=== PATIENT | female | born 1950 | race Caucasian/White ===

== ENCOUNTER 2018-11-24 14:02 | Inpatient (IN) ==
--- NOTE | 2018-11-24 14:26 | Diag Imaging Result Doc PS360 ---
EXAM: CT HEAD W/O CONTRAST HISTORY: fall head injury TECHNIQUE: CT head without contrast COMPARISON: None. FINDINGS: No parenchymal hemorrhage. No epidural or subdural hematoma. No subarachnoid hemorrhage. There are mild microvascular ischemic changes. No mass identified on this noncontrasted exam. No hydrocephalus. No skull fracture. IMPRESSION: No hemorrhage. No injury. This exam was performed using automated exposure control, adjustment of mA or kV according to patient size, and/or use of iterative reconstruction technique. Electronically signed by Tavares Mena 11/24/2018 2:24 PM
--- NOTE | 2018-11-24 15:22 | Diag Imaging Result Doc PS360 ---
EXAM: WRIST COMPLETE LEFT HISTORY: trauma TECHNIQUE: Left wrist, three views COMPARISON: None. FINDINGS: There is a fracture to the distal radius with compaction and dorsal angulation. The bones are osteopenic. IMPRESSION: Fracture to the distal radius. Electronically signed by Tavares Mena 11/24/2018 3:20 PM
--- NOTE | 2018-11-24 15:24 | Diag Imaging Result Doc PS360 ---
EXAM: CHEST-PORTABLE HISTORY: unresponsive TECHNIQUE: Portable chest single view COMPARISON: 04/30/2016 FINDINGS: The lungs are well expanded. The heart is not enlarged. The vessels are not distended. There are no infiltrates. No effusion identified. IMPRESSION: Negative exam. Electronically signed by Tavares Mena 11/24/2018 3:22 PM
[2018-11-24 15:32] LABS: UR AMPHETAMINES QUAL NONE DETECTED (NONE DETECT); UR BARBITUATES QUAL NONE DETECTED (NONE DETECT); UR BENZODIAZEPIN QUAL NONE DETECTED (NONE DETECT); UR CANNABINOIDS QUAL NONE DETECTED (NONE DETECT); UR COCAINE QUAL NONE DETECTED (NONE DETECT); UR METHADONE QUAL NONE DETECTED (NONE DETECT); UR OPIATES QUAL PRESUMPTIVE POSITIVE (NONE DETECT); UR OXYCODONE QUAL NONE DETECTED (NONE DETECT); UR PCP QUAL NONE DETECTED (NONE DETECT)
[2018-11-24 15:43] LABS: BLOOD TYPE ARTERIAL; HCO3-(ACT) 21.6 mmoll (20.0-26.0); O2(CT) 20.1 mL/dL (15.0-23.0); O2HB 91.8 % (95.0-99.0); PCO2(98.6) 33 mmHg (35-45); PO2(98.6) 71 mmHg (60-100); SAMPLE BLOOD; THB 15.6 g/dL (11.5-17.4); pH(98.6) 7.39 (7.35-7.45)
[2018-11-24 15:44] LABS: BASO# 0.03 X1000 (0.0-0.2); BASO% 0.1 % (0.0-0.8); EOS% 0.4 % (0.0-10.0); HEMATOCRIT 44.7 % (37.0-47.0); HEMOGLOBIN 15.7 g/dL (12.0-16.0); IMM GRAN# 0.09 X1000 (0.0-0.04); IMM GRAN% 0.4 % (0.0-0.5); LYMPH% 7.2 % (20.5-51.1); MCH 32.7 PG (27-31); MCHC 35.1 g/dL (33-37); MCV 93.1 FL (81-99); MONO# 1.45 X1000 (0.11-0.59); MONO% 6.1 % (1.7-9.3); MPV 11.3 FL (7.4-10.4); NEUT# 20.29 X1000 (1.4-6.5); NEUT% 85.8 % (42.2-75.2); PLT 258 X1000 (130-400); RDW 12.4 % (11.5-14.5); WBC 23.66 X1000 (4.8-10.8)
[2018-11-24 15:45] LABS: ALLEN TEST YES; MODALITY ROOM AIR
[2018-11-24 15:51] LABS: INR 1.02; PROTIME 14.2 Seconds (11.0-16.0)
[2018-11-24 15:52] LABS: PTT 49.7 Seconds (22.3-41.8)
[2018-11-24 16:26] LABS: ALB/GLOB RATIO 1.5; ALBUMIN 4.6 g/dL (3.5-5.0); CALCIUM 9.6 mg/dL (8.8-10.2); CREATININE 2.8 mg/dL (0.5-0.9); TOTAL BILIRUBIN 0.81 mg/dL (0.20-1.00); TOTAL PROTEIN 7.6 g/dL (6.3-8.3)
[2018-11-24 16:44] LABS: CK INDEX 3.9 (0.0-2.5); CK-MB 13.69 ng/mL (0.0-5.0)
--- NOTE | 2018-11-24 16:50 | PROVIDER DOCUMENTATION ---
This chart was entered by Meena Robles Scribe, acting as scribe for Jarred Millard MD. HPI-Neurological Disorder - General Chief Complaint: Altered Mental Status Stated Complaint: AMS Time Seen by Provider: 11/24/18 14:36 Source: patient, family Allergies/Adverse Reactions: Patient Allergies Allergy/AdvReac Type Severity Reaction Status Date / Time Penicillins Allergy Unknown Verified 04/30/16 16:02 Sulfa (Sulfonamide Allergy Unknown Verified 04/30/16 16:02 Antibiotics) Home Medications: Home Medication List Medication Instructions Recorded Confirmed Last Taken Type Baclofen 10 mg PO BID 04/30/16 11/24/18 04/28/16 20:00 History 10 mg Hydrocodone/APAP 10 mg/325 mg 1 tab PO Q8H PRN 04/30/16 11/24/18 04/30/16 13:00 History [[place]-10] 1 tablet Omeprazole 40 mg PO DAILY 04/30/16 11/24/18 Unknown History Paroxetine HCl [Paxil] 20 mg PO DAILY 04/30/16 11/24/18 04/29/16 09:00 History 20 mg Simvastatin 40 mg PO DAILY 04/30/16 11/24/18 04/29/16 09:00 History 40 mg Ergocalciferol (Vitamin D2) 50,000 unit PO Q7D 11/24/18 11/24/18 Unknown History [Vitamin D] Iron Carbonyl/Vit C/Vit B12/FA 1 tab PO DAILY 11/24/18 11/24/18 Unknown History [Icar-C Plus] Lisinopril/Hydrochlorothiazide 1 each PO DAILY 11/24/18 11/24/18 Unknown History [Lisinopril-Hctz 20-25 mg Tab] Potassium Chloride [Klor-Con M20] 1 tab PO DAILY 11/24/18 11/24/18 Unknown History - History of Present Illness-Neuro Nature of Presenting Problem: 68yof presents via EMS with AMS for 3 days and has worsened this morning. The patient's sister acts as historian. She reports the patient fell this morning and has bruising to L cheek and L wrist. She reports the patient has had multiple falls recently. She reports the patient lives alone. She reports the patient takes [place] 10 from a pain clinic. She reports the patient has a hx of depression. The patient's sister is at bedside. Severity: reports: moderate Onset/Duration: reports: 3 days ago, this morning Timing: reports: still present, constant Context: reports: falling, other (AMS, pt is mostly nonverbal) Character of Altered Mental Status: reports: other (mostly nonverbal) Any recent trauma/injury?: reports: other (multiple falls recently) Character of Deficits: reports: falling Associated Symptoms: reports: other (multiple falls). denies: fever/chills Similar Symptoms Previously?: No Recently seen or treated by another doctor?: No Review of Systems - Adult - REVIEW OF SYSTEMS - ADULT ROS:: limited per condition (pt is awake, alert, but mostly verbally unresponsive) Constitutional: denies: chills, fever Eyes: reports: no symptoms reported Ears, Nose, Mouth & Throat: reports: no symptoms reported Cardiovascular: reports: no symptoms reported Respiratory: reports: no symptoms reported Gastrointestinal: reports: no symptoms reported Genitourinary: reports: no symptoms reported Musculoskeletal: reports: no symptoms reported Integumentary: reports: no symptoms reported Neurological: reports: no symptoms reported Psychiatric: reports: no symptoms reported Endocrine: reports: no symptoms reported Hematologic/Lymphatic: reports: no symptoms reported Allergic/Immunologic: reports: no symptoms reported All Other Systems: Reviewed and Negative Past History - Adult - PAST MEDICAL HISTORY-ADULT Review of Records: reports: Old Records Reviewed, Nursing Assessment Review, Medications Reviewed Major Childhood Illnesses: reports: denies history Cardiovascular: reports: HTN - PRIOR SURGERIES/PROCEDURES Surgical/Procedure History: reports: none - IMMUNIZATION STATUS Childhood Immunizations: See Nurse Assessment Flu Vaccine: See Nurse Assessment - FAMILY HISTORY Family History: reviewed, not pertinent - SOCIAL HISTORY Smoking: cigarettes, less than 1 pack/day Substance Use: denies Living Situation: alone Physical Exam- Neurological - Physical Exam-Neuro Initial Vital Signs Reviewed: Yes General Appearance: alert, no apparent distress, other (pt is awake, alert, but mostly verbally unresponsive. pt follows most commands.) Eye Exam: bilateral eye: normal inspection, PERRL, EOMI HENMT: other (mild swelling under L eye and L cheek) Head Injury: no evidence of injury. 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 pt follows most commands.) Integumentary: normal color, warm/dry, ecchymosis (mild L wirst) Psych/Mental Status: other (pt is awake, alert, but mostly verbally unresponsive. pt follows most commands. when asked where she is, pt reports "hospital," but is unable to determine which hospital. when asked where she lives she responds "[place].") - Glascow Coma Scale Best Eye Response: (4) open spontaneously Best Verbal Response: (3) inappropriate words Best Motor Response: (6) obeys commands Total Glascow Score: 13 Progress - PLAN OF CARE/RESULTS Progress/Plan/Lab Results: Vital Signs - 8 hr 11/24/18 14:08 11/24/18 14:25 11/24/18 14:27 Pulse Rate 90 100 H 89 Respiratory Rate 20 17 Blood Pressure 129/76 132/93 O2 Sat by Pulse Oximetry 96 11/24/18 14:31 11/24/18 14:40 11/24/18 14:50 Pulse Rate 88 103 H 110 H Respiratory Rate 14 22 28 H Blood Pressure 148/91 O2 Sat by Pulse Oximetry 94 L 11/24/18 15:00 11/24/18 15:02 11/24/18 15:10 Pulse Rate 102 H 108 H 92 H Respiratory Rate 19 17 17 Blood Pressure 137/92 O2 Sat by Pulse Oximetry 11/24/18 15:20 11/24/18 15:28 11/24/18 15:30 Pulse Rate 96 H 88 91 H Respiratory Rate 23 17 17 Blood Pressure 136/96 O2 Sat by Pulse Oximetry 11/24/18 15:31 11/24/18 15:40 11/24/18 15:50 Pulse Rate 106 H 89 95 H Respiratory Rate 15 19 17 Blood Pressure 149/86 O2 Sat by Pulse Oximetry 11/24/18 16:00 11/24/18 16:01 Pulse Rate 100 H 91 H Respiratory Rate 18 18 Blood Pressure 132/89 O2 Sat by Pulse Oximetry Laboratory Results - last 24 hr 11/24/18 11/24/18 11/24/18 14:55 15:25 15:25 WBC 23.66 H RBC 4.80 Hgb 15.7 Hct 44.7 MCV 93.1 MCH 32.7 H MCHC 35.1 RDW Std Deviation 12.4 Plt Count 258 MPV 11.3 H Immature Gran % (Auto) 0.4 Neut % (Auto) 85.8 H Lymph % (Auto) 7.2 L Vernon % (Auto) 6.1 Eos % (Auto) 0.4 Baso % (Auto) 0.1 Immature Gran # (Auto) 0.09 H Neut # (Auto) 20.29 H Lymph # (Auto) 1.70 Vernon # (Auto) 1.45 H Eos # (Auto) 0.10 Baso # (Auto) 0.03 PT INR PTT (Actin FS) Specimen Type Sample Site pH pCO2 pO2 HCO3 Base Excess Oxyhemoglobin ABG O2 Sat (Calculated) ABG O2 Saturation ABG Carboxyhemoglobin ABG Methemoglobin Caio Test A-a O2 Difference Total Hemoglobin Lactate Blood Gas Modality FiO2 % Sodium 137 Potassium 3.0 L Chloride 97 L Carbon Dioxide 20 L Anion Gap 20 BUN 58 H Creatinine 2.8 H Estimated GFR/1.73 m2 17 BUN/Creatinine Ratio 21 Glucose 107 H POC Glucose Calculated Osmolality 290 Calcium 9.6 Total Bilirubin 0.81 AST 32 H ALT 15 Alkaline Phosphatase 129 H Creatine Kinase 351 H Creatine Kinase Index 3.9 H CK-MB (CK-2) 13.69 H Troponin T Total Protein 7.6 Albumin 4.6 Globulin 3.0 Albumin/Globulin Ratio 1.5 Plasma Lactate Urine Opiates Screen PRESUMPTIVE POSITIVE A Ur Oxycodone Screen NONE DETECTED Ur Methadone, Qual NONE DETECTED Ur Barbiturates Screen NONE DETECTED Ur Phencyclidine Scrn NONE DETECTED Ur Amphetamines Screen NONE DETECTED U Benzodiazepines Scrn NONE DETECTED Urine Cocaine Screen NONE DETECTED U Cannabinoids Screen NONE DETECTED 11/24/18 11/24/18 11/24/18 15:25 15:25 15:25 WBC RBC Hgb Hct MCV MCH MCHC RDW Std Deviation Plt Count MPV Immature Gran % (Auto) Neut % (Auto) Lymph % (Auto) Vernon % (Auto) Eos % (Auto) Baso % (Auto) Immature Gran # (Auto) Neut # (Auto) Lymph # (Auto) Vernon # (Auto) Eos # (Auto) Baso # (Auto) PT 14.2 INR 1.02 PTT (Actin FS) 49.7 H Specimen Type Sample Site pH pCO2 pO2 HCO3 Base Excess Oxyhemoglobin ABG O2 Sat (Calculated) ABG O2 Saturation ABG Carboxyhemoglobin ABG Methemoglobin Caio Test A-a O2 Difference Total Hemoglobin Lactate Blood Gas Modality FiO2 % Sodium Potassium Chloride Carbon Dioxide Anion Gap BUN Creatinine Estimated GFR/1.73 m2 BUN/Creatinine Ratio Glucose POC Glucose Calculated Osmolality Calcium Total Bilirubin AST ALT Alkaline Phosphatase Creatine Kinase Creatine Kinase Index CK-MB (CK-2) Troponin T < 0.010 Total Protein Albumin Globulin Albumin/Globulin Ratio Plasma Lactate 1.6 Urine Opiates Screen Ur Oxycodone Screen Ur Methadone, Qual Ur Barbiturates Screen Ur Phencyclidine Scrn Ur Amphetamines Screen U Benzodiazepines Scrn Urine Cocaine Screen U Cannabinoids Screen 11/24/18 11/24/18 15:40 15:50 WBC RBC Hgb Hct MCV MCH MCHC RDW Std Deviation Plt Count MPV Immature Gran % (Auto) Neut % (Auto) Lymph % (Auto) Vernon % (Auto) Eos % (Auto) Baso % (Auto) Immature Gran # (Auto) Neut # (Auto) Lymph # (Auto) Vernon # (Auto) Eos # (Auto) Baso # (Auto) PT INR PTT (Actin FS) Specimen Type ARTERIAL Sample Site R RADIAL pH 7.39 pCO2 33 L pO2 71 HCO3 21.6 Base Excess -4.0 L Oxyhemoglobin 91.8 L ABG O2 Sat (Calculated) 20.1 ABG O2 Saturation 97.0 ABG Carboxyhemoglobin 4.40 H ABG Methemoglobin 1.0 Caio Test YES A-a O2 Difference 37.0 Total Hemoglobin 15.6 Lactate 0.90 Blood Gas Modality ROOM AIR FiO2 % 21.0 Sodium Potassium Chloride Carbon Dioxide Anion Gap BUN Creatinine Estimated GFR/1.73 m2 BUN/Creatinine Ratio Glucose POC Glucose 131 H Calculated Osmolality Calcium Total Bilirubin AST ALT Alkaline Phosphatase Creatine Kinase Creatine Kinase Index CK-MB (CK-2) Troponin T Total Protein Albumin Globulin Albumin/Globulin Ratio Plasma Lactate Urine Opiates Screen Ur Oxycodone Screen Ur Methadone, Qual Ur Barbiturates Screen Ur Phencyclidine Scrn Ur Amphetamines Screen U Benzodiazepines Scrn Urine Cocaine Screen U Cannabinoids Screen Orders Category Date Time Status Cardiac Monitoring DIRECTED Care 11/24/18 14:49 Active Barnard Cath Insertion ORDERED Care 11/24/18 15:41 Active Saline Loc NOW Care 11/24/18 14:49 Active CHEST-PORTABLE [RAD] Stat Exams 11/24/18 14:[address] HEAD W/O CONTRAST [CT] Stat Exams 11/24/18 14:06 Completed WRIST COMPLETE LEFT [RAD] Stat Exams 11/24/18 14:50 Completed ABG [RESP] Routine Lab 11/24/18 15:40 Completed CBC WITH ELECTRONIC DIFF [HEME] Stat Lab 11/24/18 15:25 Completed CK PROFILE [SP CHEM] Stat Lab 11/24/18 15:25 Completed COMPREHENSIVE METABOLIC PANEL [CHEM] Stat Lab 11/24/18 15:25 Completed LACTATE, PLASMA [CHEM] Stat Lab 11/24/18 15:25 Completed PROTIME WITH INR [COAG] Stat Lab 11/24/18 15:25 Completed PTT [COAG] Stat Lab 11/24/18 15:25 Completed TROPONIN T Stat Lab 11/24/18 15:25 Completed URINE DRUG SCREEN Stat Lab 11/24/18 14:55 Completed Altered Mental Status Stat Oth 11/24/18 14:49 Ordered EKG [EKG] Stat Ther 11/24/18 14:49 Ordered Result Diagrams: 11/24/18 15:25 11/24/18 15:25 - REASSESSMENT Reassessment #1 Time Reassessed: 16:46 Status: unchanged (pt remains somnolent when not stimulated. imaging confirms distal radius fx. CK is elevated, not to level sugg'x of serious rhabdo. K+ low. pt has RITU with BUN 58/2.8 Creat (both normal when last assayed here 2015)) - XRAY 1 XRAY: Left XRAY Study: Wrist Impression: Abnormal ( FINDINGS: There is a fracture to the distal radius with compaction and dorsal angulation. The bones are osteopenic. IMPRESSION: Fracture to the distal radius.) 2 XRAY Study: Chest Impression: Normal (FINDINGS: The lungs are well expanded. The heart is not enlarged. The vessels are not distended. There are no infiltrates. No effusion identified. IMPRESSION: Negative exam.) - CT/MRI 1 CT Study: Head Impression: Abnormal ( FINDINGS: No parenchymal hemorrhage. No epidural or subdural hematoma. No subarachnoid hemorrhage. There are mild microvascular ischemic changes. No mass identified on this noncontrasted exam. No hydrocephalus. No skull fracture. IMPRESSION: No hemorrhage. No injury. This exam was performed using automated exposure control, adjustment of mA or kV according to patient size, and/or use of iterative reconstruction technique.) - CONSULTS/PCP/HOSPITALIST Notification #1 *Consult/PCP/Hospitalist*: Gu[place]o Time Discussed: 16:48 Consult Disposition: Admit Departure - Departure Date of Disposition Decision: 11/24/18 Time of Disposition Decision: 16:48 DIAGNOSIS: Altered mental status, RITU (acute kidney injury), Hypokalemia, Rhabdomyolysis, Distal radius fracture, left Disposition: ADMITTED INPATIENT 09 Certified Medical Emergency: Emergent Condition: Serious Additional Freetext Instructions: ED Follow Up Instructions: You have been treated by a care provider in the Emergency Department. These instructions are being provided to you so you can have an understanding of how to care for yourself upon discharge. Upon discharge from the Emergency Department, you are responsible for making arrangements for follow-up care by a physician of your choice. Take all prescribed medications as directed. Return to the Emergency Department immediately for any new or worsening symptoms. You may call the Physician Referral phone number at [phone] to obtain a list of Physicians who are taking new patients. Referrals and Follow-Ups: Adam Lindo MD [Primary Care Provider] - - Critical Care Note This patient required my direct & personal management of CC.: Yes Total Time (mins): 40 Critical Care Statement: This patient required my direct personal management to treat or rule out processes, the absence of which, could potentiallly result in sudden, clinically significant life or limb threatening deterioration. Attestation - Physician/ VICK Attestation Patient care was provided by Advanced Practice Provider:: No The physician spent face to face time with patient:: Yes Advanced Practice Provider documentation review:: Supervising physician onsite and consulted in the evaluation and care of this patient. The physician did have a face to face encounter with the patient. This chart was documented by the indicated scribe, (Meena Robles Scribe) and accurately reflects the services I performed and decisions made by me, Jarred Millard MD, as attested by the provider's signature.
[2018-11-24 17:24] LABS: URINE SOURCE CATH
[2018-11-24 17:41] LABS: BILIRUBIN URINE NEGATIVE (NEGATIVE); BLOOD URINE NEGATIVE (NEGATIVE); COLOR YELLOW; GLUCOSE URINE NEGATIVE (NEGATIVE); KETONE URINE NEGATIVE (NEGATIVE); LEUKOCYTES URINE NEGATIVE (NEGATIVE); NITRITE URINE NEGATIVE (NEGATIVE); PH URINE 5.5; PROTEIN URINE TRACE mg/dL (NEGATIVE); SP GRAVITY URINE 1.013; TURBIDITY URINE CLEAR (CLEAR); UROBILINOGEN URINE NORMAL (NORMAL)
[2018-11-24 17:43] LABS: UR EPITHELIAL CELLS <10 /HPF (<10); URINE BACTERIA NEGATIVE /HPF; URINE RBC <10 /HPF (<10); URINE WBC <10 /HPF (<10)
[2018-11-24 19:36] LABS: ALB/GLOB RATIO 1.2; ALBUMIN 4.2 g/dL (3.5-5.0); CALCIUM 9.6 mg/dL (8.8-10.2); CREATININE 2.9 mg/dL (0.5-0.9); POTASSIUM 2.9 mmol/L (3.5-5.1); TOTAL BILIRUBIN 0.77 mg/dL (0.20-1.00); TOTAL PROTEIN 7.6 g/dL (6.3-8.3)
[2018-11-24] MEDS: NS 1,000 ML IV SCH (20:12)
[2018-11-24] MEDS: PROTONIX IV SCH (20:13)
[2018-11-24] MEDS: LOVENOX SUBQ SCH (20:13)
[2018-11-24] MEDS: VITAMIN D PO SCH (20:13)
[2018-11-24] MEDS: POTASSIUM CHLORIDE 60 MEQ in NS 500 ML IV SCH (20:20)
--- NOTE | 2018-11-24 22:44 | HISTORY AND PHYSICAL ---
CHIEF COMPLAINT: Altered mental status, near syncope, sustained a fall. HISTORY OF PRESENT ILLNESS: She is a 68-year-old patient of mine who came in by EMS with altered mental status for 3 days, has been worsening this morning. Patient's sister was the historian. She reports the patient fell this morning. Has bruising on the left cheek, on the left wrist. Patient had multiple falls recently, lives alone. She is taking [place] 10 from the [facility]. She has a history of depression. Patient's sister at the bedside. Upon workup in the ER, the patient has hypokalemia, azotemia. Urine toxic screen positive for opiates. The left wrist has a distal radius fracture. She is also hypotensive and tachycardic. Admitted to the ICU in a guarded condition. I did review the ER workup, and had seen the patient in the emergency room. The patient was completely confused, not able to recognize me. She thinks she is still at home. She has a chronic elevated white cell count. Seen by Dr. Wilkinson before. No blasts noted. Patient was seen in my office in September. Most of the history was obtained from the family and my office notes. PAST MEDICAL HISTORY: Depression, hypertension, hemorrhoids, hiatal hernia, hyperlipidemia, nicotine dependency, osteoarthritis. PAST SURGICAL HISTORY: Inguinal hernia repair on the right side. MEDICATIONS: Icar C Plus, potassium, Prilosec, Paxil 20 mg daily, trazodone 100 daily, and apparently she is taking [place]. It is not on my list. ALLERGIES: Penicillin, sulfa. SOCIAL HISTORY: . Lives in [place]. Smoking 1 pack a day since 1979. No alcohol. FAMILY HISTORY: Father of prostate cancer at 75. Mother of heart failure at 93. HEALTH MAINTENANCE: In my office. Flu vaccine, September 2018. Mammography, September 2018, by Dr. Owusu. DEXA scan, 2018. Pap smear, 2005. REVIEW OF SYSTEMS: Unable to obtain. The patient is confused and tachycardic, and blood pressure is on the low side. PHYSICAL EXAMINATION: HEENT: Pupils equal, react to light. Dry mucous membranes. NECK: Supple. No lymphadenopathy. JVD is not elevated. CHEST: Bilateral air entry. HEART: Sounds are regular. ABDOMEN: Belly is soft, nontender. Good bowel sounds. EXTREMITIES: Left wrist is swollen, slightly angulated. No peripheral edema, cyanosis. NEUROLOGIC: No obvious neurological deficits noted. INVESTIGATIONS: CBC: White cell count 23, hematocrit 44, platelets 258,000. PT 14. INR 1.0. PTT 49. ABG: pH is 7.39, pCO2 33, PO2 71. SMA-7: Sodium 137, potassium 3.0, BUN 58, creatinine 2.8, glucose 107. AST and ALT were high. CK index was positive. Troponin was negative. Urinalysis was clear. Urine toxic screen positive for opiates. X-ray of the left wrist 3-views: Fracture of the distal radius, and the bones are osteopenic. CT head: No hemorrhage. No injury. Chest x-ray negative. ASSESSMENT AND PLAN: A 68-year-old white female with underlying depression, chronic pain. Came in with altered mental status with a fall. Rule out cardiac arrhythmias. Admitted in telemetry in the ICU. 1. Hypokalemia. Replace the potassium. Acute kidney injury. Hold the lisinopril. IV fluids. 2. Left wrist fracture. Dr. May consult. 3. Deep venous thrombosis prophylaxis with Lovenox. 4. Gastrointestinal prophylaxis with IV Protonix. 5. Follow up on serial cardiac enzymes. 6. Repeat the blood workup in the morning. 7. Diet: On clear liquid diet. 8. Will follow up. cc: Jae Lindo MD
[2018-11-25] MEDS: POTASSIUM CHLORIDE 60 MEQ in NS 500 ML IV SCH (00:45)
[2018-11-25] MEDS: NS 1,000 ML IV SCH ×3 (04:32→19:50)
[2018-11-25] MEDS: ICAR-C PLUS PO SCH (08:16)
--- NOTE | 2018-11-25 10:17 | CONSULTATION ---
DATE OF CONSULTATION: 11/25/2018 REASON FOR CONSULTATION: Left wrist fracture. ADMITTING HISTORY AND HOSPITAL COURSE: This patient was admitted by the hospitalist to the ICU for altered mental status and apparent syncope and fall. I was consulted for pain and tenderness about the left wrist. She presently is a poor historian and confused. PAST MEDICAL HISTORY: Significant for depression, hypertension, hiatal hernia, hyperlipidemia, nicotine dependency, and osteoarthritis. PAST SURGICAL HISTORY: Status post inguinal repair in the past. CURRENT MEDICATIONS: As listed per the hospital chart. ALLERGIES: Penicillin and sulfa. PHYSICAL EXAMINATION: Reveals mild spoon neck deformity of the left wrist. Compartments are soft. There are no open wounds. She appears to be motor and sensory intact. She is relatively nontender about the elbow. There is good capillary refill. There is some evidence of DJD preexisting about the hand just with some small nodules. IMAGING: X-rays reviewed show a distal radius fracture with dorsal tilting and characteristic spoon neck deformity. ASSESSMENT: Left distal Colles fracture. PLAN: Patient will be splinted provisionally. If she becomes a good surgical candidate and is medically cleared we will consider surgical reduction and fixation of the fracture. Otherwise, we will continue with nonsurgical care if she has a high surgical risks. Currently she will need to be optimized from a medical standpoint, as well as her confusion and mental status prior to considering any surgery. cc: MD Jae Kern MD
[2018-11-25 10:34] LABS: BASO# 0.03 X1000 (0.0-0.2); BASO% 0.2 % (0.0-0.8); EOS# 0.08 X1000 (0.0-0.7); EOS% 0.5 % (0.0-10.0); HEMATOCRIT 43.9 % (37.0-47.0); HEMOGLOBIN 14.7 g/dL (12.0-16.0); LYMPH# 1.76 X1000 (1.2-3.4); LYMPH% 10.6 % (20.5-51.1); MCH 32.9 PG (27-31); MCHC 33.5 g/dL (33-37); MCV 98.2 FL (81-99); MONO# 1.26 X1000 (0.11-0.59); MONO% 7.6 % (1.7-9.3); MPV 11.7 FL (7.4-10.4); NEUT# 13.51 X1000 (1.4-6.5); NEUT% 81.1 % (42.2-75.2); PLT 223 X1000 (130-400); RBC 4.47 XMIL (4.2-5.4); RDW 13.1 % (11.5-14.5); WBC 16.64 X1000 (4.8-10.8)
[2018-11-25 10:46] LABS: INR 1.1; PROTIME 15.1 Seconds (11.0-16.0)
[2018-11-25 12:23] LABS: TSH 0.75 uIUmL (0.27-4.20)
[2018-11-25 12:36] LABS: ALBUMIN 3.5 g/dL (3.5-5.0); CALCIUM 9.3 mg/dL (8.8-10.2); POTASSIUM 4.1 mmol/L (3.5-5.1); TOTAL BILIRUBIN 0.63 mg/dL (0.20-1.00)
--- NOTE | 2018-11-25 14:02 | PROGRESS NOTE ---
DATE: 11/25/2018 SUBJECT: Appreciated Dr. May about the left radius fracture. The patient is confused. She appears to be "brain fog" as per the nurses. She is not conversing with me very well. Family also felt the same thing. REVIEW OF SYSTEMS: None reported. PHYSICAL EXAMINATION: She is afebrile, tachycardic, blood pressure is stable.HEENT: Within normal limits. Neck: Supple. Chest: Clear. Tachycardic. Belly: Is soft, nontender. No obvious deficits noted. INVESTIGATIONS: CBC: White cell count 16, hematocrit 43, platelets 223,000, PT/INR is normal. SMA 7: Sodium 145, potassium 4.1, BUN 45, creatinine 2.0. LFTs were normal. ProBNP 400. Troponin was negative. Vitamin B12 is normal. TSH is normal. Urinalysis is clear. ASSESSMENT AND PLAN: 1. Altered mental status due to metabolic encephalopathy with underlying depression and chronic pain. 2. Acute kidney injury due to dehydration and hypotension. Continue IV fluids. 3. Hypokalemia is better. 4. DVT prophylaxis with Lovenox. 5. Gastrointestinal prophylaxis with IV Protonix. 6. Left radius fracture. We will do the open reduction and internal fixation. DISPOSITION: account services manager consult for rehab placement and chronically elevated white cell count, stable. Chronic depression. We will start on Paxil. LEVEL OF DOCUMENTATION: 25 minutes. cc: Jae Lindo MD
[2018-11-25] MEDS: PROTONIX IV SCH (18:14)
[2018-11-25] MEDS: SODIUM CHLORIDE 0.9% INJ SCH (18:14)
[2018-11-25] MEDS: LOVENOX SUBQ SCH (18:15)
[2018-11-26 07:16] LABS: CALCIUM 8.9 mg/dL (8.8-10.2); CREATININE 1.2 mg/dL (0.5-0.9); POTASSIUM 4.4 mmol/L (3.5-5.1)
[2018-11-26] MEDS: NS 1,000 ML IV SCH (07:48)
[2018-11-26] MEDS: ICAR-C PLUS PO SCH (08:00)
[2018-11-26] MEDS: PAXIL PO SCH (08:00)
[2018-11-26 08:28] LABS: BASO# 0.07 X1000 (0.0-0.2); BASO% 0.5 % (0.0-0.8); EOS# 0.31 X1000 (0.0-0.7); EOS% 2.1 % (0.0-10.0); HEMATOCRIT 38.7 % (37.0-47.0); HEMOGLOBIN 12.9 g/dL (12.0-16.0); IMM GRAN# 0.07 X1000 (0.0-0.04); IMM GRAN% 0.5 % (0.0-0.5); LYMPH# 2.33 X1000 (1.2-3.4); LYMPH% 15.8 % (20.5-51.1); MCH 32.8 PG (27-31); MCHC 33.3 g/dL (33-37); MCV 98.5 FL (81-99); MONO# 1.54 X1000 (0.11-0.59); MONO% 10.4 % (1.7-9.3); MPV 11.4 FL (7.4-10.4); NEUT# 10.44 X1000 (1.4-6.5); NEUT% 70.7 % (42.2-75.2); PLT 196 X1000 (130-400); RBC 3.93 XMIL (4.2-5.4); RDW 12.9 % (11.5-14.5); WBC 14.76 X1000 (4.8-10.8)
--- NOTE | 2018-11-26 09:25 | EKG Report ---
Test Performed on : 11/24/2018 2:30:57 PM Test Reason : unresponsive Blood Pressure : / mmHG Vent. Rate : 089 BPM Atrial Rate : 089 BPM P-R Int : 174 ms QRS Dur : 090 ms QT Int : 382 ms P-R-T Axes : 060 007 024 degrees QTc Int : 464 ms Normal sinus rhythm. Possible Lateral infarct , age undetermined Inferior-posterior infarct , age undetermined Abnormal ECG When compared with ECG of 30-APR-2016 16:29, No significant change was found Unconfirmed Result
--- NOTE | 2018-11-26 13:05 | PROGRESS NOTE ---
DATE: 11/26/2018 SUBJECTIVE DATA: Ms. Adams reports that she is having pain in her left wrist. She reports that she has been able to eat food today. She forgot how she hurt her wrist. OBJECTIVE DATA: The patient is still somewhat incoherent. The patient is awake and eating at the bedside. She is oriented x1 to person. She did know P[facility]. There is good sensation to the left upper extremity. There is good capillary refill. The splint is intact to the arm. There is mild swelling noted in the fingers. ASSESSMENT: Left distal radius fracture. PLAN: We will plan on doing an ORIF of the left distal radius maybe tomorrow if the patient is more alert. We will see how she is doing in the morning. At this point in time, the patient is still slightly incoherent and confused. I talked to her a little bit about the surgery and what it entailed. She agrees that she wanted to have this done. She did seem slightly confused about what was going on. We will wait until family arrives or until the patient is more alert. We will keep her in a splint at this time. Dictated by THIERRY Tracy for Gavin May MD cc: THIERRY Tracy MD Jagan Reddy, MD
--- NOTE | 2018-11-26 19:57 | PROGRESS NOTE ---
DATE: 11/26/2018 SUBJECTIVE: Patient's mental status improving. Complains of left wrist pain. Rest of review of systems are normal. OBJECTIVE: Vital Signs: On exam, temp is 98, pulse is 95, blood pressure is 140/81. HEENT: Within normal limits. Neck: Supple. Chest: Clear. Heart: Heart sounds are regular, tachycardic. Abdomen: Belly is soft, nontender. INVESTIGATIONS: CBC: White cell count 14, hematocrit 38, platelets 196,000. SMA-7: Sodium 142, potassium 4.4, BUN 28 creatinine 1.2. ASSESSMENT AND PLAN: 1. Altered mental status due to metabolic encephalopathy, improving. 2. Dehydration is better. 3. Acute kidney injury, improving. 4. Elevated white cell count is chronic and continue IV fluids. 5. DVT and GI prophylaxis as per order sheet. 6. Transferred to the regular floor and left wrist fracture which she is medically stable to undergo for surgery. We will speak to Dr. May in the morning. Please see the transfer orders. LEVEL OF DOCUMENTATION: 25 minutes. cc: Jae Lindo MD
[2018-11-26] MEDS: LOVENOX SUBQ SCH (20:57)
[2018-11-26] MEDS: SODIUM CHLORIDE 0.9% INJ SCH (20:57)
[2018-11-26] MEDS: PROTONIX IV SCH (20:57)
[2018-11-27] MEDS: NS 1,000 ML IV SCH ×3 (01:11→23:24)
[2018-11-27 06:44] LABS: BASO# 0.05 X1000 (0.0-0.2); BASO% 0.4 % (0.0-0.8); EOS# 0.28 X1000 (0.0-0.7); EOS% 2.1 % (0.0-10.0); HEMATOCRIT 36.6 % (37.0-47.0); HEMOGLOBIN 12.2 g/dL (12.0-16.0); IMM GRAN# 0.05 X1000 (0.0-0.04); IMM GRAN% 0.4 % (0.0-0.5); LYMPH# 1.95 X1000 (1.2-3.4); LYMPH% 14.3 % (20.5-51.1); MCH 32.6 PG (27-31); MCHC 33.3 g/dL (33-37); MCV 97.9 FL (81-99); MONO# 0.72 X1000 (0.11-0.59); MONO% 5.3 % (1.7-9.3); MPV 11.3 FL (7.4-10.4); NEUT# 10.55 X1000 (1.4-6.5); NEUT% 77.5 % (42.2-75.2); PLT 191 X1000 (130-400); RBC 3.74 XMIL (4.2-5.4); RDW 12.8 % (11.5-14.5)
[2018-11-27 07:22] LABS: CALCIUM 8.4 mg/dL (8.8-10.2); POTASSIUM 3.5 mmol/L (3.5-5.1)
[2018-11-27] MEDS: ICAR-C PLUS PO SCH (09:30)
[2018-11-27] MEDS: PAXIL PO SCH (09:30)
--- NOTE | 2018-11-27 16:35 | PROGRESS NOTE ---
DATE: 11/27/2018 SUBJECTIVE: Ms. Adams is seen for followup of her wrist fracture. Currently, she still has some confusion. OBJECTIVE: Her splint is clean and dry. There is good capillary refill. There are no signs of significant complication or compartment syndrome. PLAN: I have discussed with her planning surgical fixation and reduction of the wrist once she is medically cleared, sometime in next week or 2. When she is medically cleared for surgery, we will consider proceeding with this on an elective basis in the next week or 2. cc: MD Jae Kern MD
[2018-11-27] MEDS: LOVENOX SUBQ SCH (18:51)
[2018-11-27] MEDS: SODIUM CHLORIDE 0.9% INJ SCH (18:51)
[2018-11-27] MEDS: PROTONIX IV SCH (18:51)
--- NOTE | 2018-11-27 22:03 | PROGRESS NOTE ---
DATE: 11/27/2018 SUBJECTIVE: The patient is more coming to docile, and confusion is improving. Bilateral chemosis of eyes noted. REVIEW OF SYSTEMS: Pain in the left wrist. OBJECTIVE: On exam, temperature is 98 degrees, vitals are stable. HEENT exam: Bilateral chemosis. Neck is supple. Chest is clear. Heart sounds are regular. Belly is soft, nontender. Good bowel sounds. LABORATORY DATA: CBC: White cell count 13, hematocrit 36, platelets 191,000. SMA 7: Sodium 142, potassium 3.5, BUN 25, creatinine 1.0. ASSESSMENT AND PLAN: 1. Altered mental status, improving. 2. Acute kidney injury, improving. Slowly decrease intravenous fluids. Advance the diet. 3. Left wrist fracture. The patient will be ready for surgery. We will discuss with Dr. May. 4. Deep venous thrombosis prophylaxis. Out of the bed with physical therapy. 5. Depression, on Paxil. 6. Chronic pain, on [place] [facility]. 7. We will slowly check orthostatic blood pressure. Continue child monitor and physical therapy evaluation. Level of documentation 25 minutes. cc: Jae Lindo MD
--- NOTE | 2018-11-28 08:07 | PROGRESS NOTE ---
DATE: 11/28/2018 Ms. Adams is seen for her distal radius fracture. Dr. Lindo has okayed her surgically to fix the wrist. We will plan on surgical fixation of the wrist tomorrow. I have discussed risks and benefits with her including risks of anesthesia, infection, damage to tendon, nerve, or blood vessel, loss of limb or life, and other imponderables. She appears to understand this and voices appropriate recognition of these risks. She is alert and oriented at the present time. We will plan on surgical reduction of the left wrist around lunchtime tomorrow. cc: MD Jae Kern MD
[2018-11-28] MEDS: ICAR-C PLUS PO SCH (12:08)
[2018-11-28] MEDS: PAXIL PO SCH (12:08)
[2018-11-28] MEDS: NS 1,000 ML IV SCH (18:35)
--- NOTE | 2018-11-28 18:46 | PROGRESS NOTE ---
DATE: 11/28/2018 SUBJECTIVE: The patient is much better. A lot of swelling around the eyes and mentally is improved. The patient is now back to baseline. EXAMINATION: Vital signs: Temperature is 99, pulse is 93, blood pressure is stable. HEENT: Chemosis and blepharitis in the right eye. Chest: Clear. Heart: Heart sounds are regular. Abdomen: Belly is soft, nontender. INVESTIGATIONS: CBC: White cell count 13, hematocrit 36, platelets 191,000. SMA-7: Sodium 142, potassium 3.5, BUN 25, creatinine 1.0. Cardiac enzymes were negative. ASSESSMENT AND PLAN: 1. Acute kidney injury, improving. 2. Hypertension, better. 3. Left wrist fracture. Going for surgery tomorrow. 4. Chemosis of the right eye with blepharitis. We will use the tobramycin drops. 5. Appreciated Dr. May consult and will follow up. LEVEL OF DOCUMENTATION: 25 minutes. cc: Jea Lindo MD
[2018-11-28] MEDS: SODIUM CHLORIDE 0.9% INJ SCH (21:33)
[2018-11-28] MEDS: PROTONIX IV SCH (21:33)
[2018-11-28] MEDS: LOVENOX SUBQ SCH (21:33)
[2018-11-28] MEDS: TOBREX OPH SOLN BOTH EYES SCH (21:34)
[2018-11-29] MEDS: TOBREX OPH SOLN BOTH EYES SCH ×8 (03:24→23:10)
[2018-11-29] MEDS: NS 1,000 ML IV SCH ×2 (03:25→12:31)
--- NOTE | 2018-11-29 07:38 | Diag Imaging Result Doc PS360 ---
EXAM: CT HEAD W/O CONTRAST 11/29/2018 HISTORY: code [id number] TECHNIQUE: This exam was performed using automated exposure control, adjustment of mA or kV according to patient size, and/or use of iterative reconstruction technique. COMMENT: There is no evidence of mass effect, bleed, abnormal extra-axial fluid collection, or hydrocephalus. Compared to the previous examination of 11/24/2018 there has been no significant change in the appearance of the brain. The calvarium is intact. The visualized paranasal sinuses are clear. IMPRESSION: No evidence of acute intracranial disease. Electronically signed by Jeffrey Ocampo 11/29/2018 7:36 AM
--- NOTE | 2018-11-29 07:39 | EKG Report ---
Test Performed on : 11/29/2018 07:11:12 AM Test Reason : acute stroke Blood Pressure : / mmHG Vent. Rate : 120 BPM Atrial Rate : 120 BPM P-R Int : 146 ms QRS Dur : 078 ms QT Int : 320 ms P-R-T Axes : 060 054 035 degrees QTc Int : 452 ms Sinus tachycardia. Nonspecific ST abnormality Abnormal ECG When compared with ECG of 24-NOV-2018 14:30, (Unconfirmed) Criteria for Inferior-posterior infarct are no longer present Confirmed by Kathi BLACKWOOD, Erick Cole ([id number]) on 11/29/2018 12:22:23 PM
--- NOTE | 2018-11-29 08:01 | ED EKG INTERP ---
This chart was entered by Matthias Bobby Scribe, acting as scribe for Parag Bobby MD. EKG Interpretation - EKG Time of EKG reading by physician:: 07:11 EKG Read and Signed by:: Parag Bobby EKG Interpretation (*Must complete 3 of following elements*): Abnormal Rate: 120 Rhythm: sinus tachy [place]: normal QRS: normal ST Wave: non-specific ST changes Attestation - Physician/ VICK Attestation Patient care was provided by Advanced Practice Provider:: No The physician spent face to face time with patient:: Yes Advanced Practice Provider documentation review:: Supervising physician onsite and consulted in the evaluation and care of this patient. The physician did have a face to face encounter with the patient. This chart was documented by the indicated scribe, (Matthias Bobby Scribe) and accurately reflects the services I performed and decisions made by me, Parag Bobby MD, as attested by the provider's signature.
[2018-11-29] MEDS ORDERED: NS 1,000 ML ONE (08:09)
[2018-11-29 08:23] LABS: BASO# 0.12 X1000 (0.0-0.2); BASO% 0.7 % (0.0-0.8); EOS# 0.47 X1000 (0.0-0.7); EOS% 2.9 % (0.0-10.0); HEMATOCRIT 38.8 % (37.0-47.0); IMM GRAN% 0.6 % (0.0-0.5); LYMPH# 3.01 X1000 (1.2-3.4); LYMPH% 18.4 % (20.5-51.1); MCH 32.9 PG (27-31); MCHC 33.5 g/dL (33-37); MCV 98.2 FL (81-99); MONO% 6.7 % (1.7-9.3); NEUT# 11.58 X1000 (1.4-6.5); NEUT% 70.7 % (42.2-75.2); PLT 228 X1000 (130-400); RBC 3.95 XMIL (4.2-5.4); RDW 12.7 % (11.5-14.5); WBC 16.38 X1000 (4.8-10.8)
[2018-11-29 08:24] LABS: INR 0.96; PROTIME 13.5 Seconds (11.0-16.0); PTT 34.8 Seconds (22.3-41.8)
[2018-11-29] MEDS: NS 50 ML IV SCH ×2 (08:33→08:35)
[2018-11-29 08:36] LABS: AGAP 16; ALB/GLOB RATIO 1.5; ALBUMIN 3.5 g/dL (3.5-5.0); ALKALINE PHOSPHATASE 93 U/L (32-104); BUN 18 mg/dL (8-22); CHLORIDE 111 mmol/L (98-107); COSMO 288; CREATININE 0.9 mg/dL (0.5-0.9); ESTIMATED GFR > 60; GLUCOSE 111 mg/dL (70-104); GOT 39 U/L (10-30); GPT 14 U/L (10-36); POTASSIUM 3.4 mmol/L (3.5-5.1); SODIUM 143 mmol/L (136-145); TCO2 16 mmol/L (25-35); TOTAL BILIRUBIN 0.94 mg/dL (0.20-1.00); TOTAL PROTEIN 5.9 g/dL (6.3-8.3)
[2018-11-29 08:39] LABS: CK PROFILE 658 U/L (24-173)
[2018-11-29] MEDS ORDERED: ATIVAN ONE (08:39)
[2018-11-29 08:45] LABS: HEMOGLOBIN A1C 5.2 % (4.8-6.0)
[2018-11-29] MEDS ORDERED: ATIVAN IV ONE (08:50)
[2018-11-29 08:57] LABS: CK INDEX 0.6 (0.0-2.5); CK-MB 3.84 ng/mL (0.0-5.0)
[2018-11-29] MEDS ORDERED: KEPPRA 1,000 MG in NS 100 ML IV ONE (09:00)
[2018-11-29] MEDS: ICAR-C PLUS PO SCH (10:05)
[2018-11-29] MEDS: PAXIL PO SCH (10:06)
[2018-11-29] MEDS: ATIVAN IV PRN ×3 (11:09→23:05)
--- NOTE | 2018-11-29 11:34 | Diag Imaging Result Doc PS360 ---
CHEST-PORTABLE - 11/29/2018 INDICATION: TPA COMPARISON: 11/24/2018 FINDINGS: The lungs are normally expanded and clear. Heart size and mediastinal contours are normal. No pneumothorax or pleural effusion. IMPRESSION: Negative exam. Electronically signed by Reji Thao 11/29/2018 11:31 AM
[2018-11-29 12:13] LABS: UR AMPHETAMINES QUAL NONE DETECTED (NONE DETECT); UR BARBITUATES QUAL NONE DETECTED (NONE DETECT); UR BENZODIAZEPIN QUAL NONE DETECTED (NONE DETECT); UR CANNABINOIDS QUAL NONE DETECTED (NONE DETECT); UR COCAINE QUAL NONE DETECTED (NONE DETECT); UR METHADONE QUAL NONE DETECTED (NONE DETECT); UR OPIATES QUAL NONE DETECTED (NONE DETECT); UR OXYCODONE QUAL NONE DETECTED (NONE DETECT); UR PCP QUAL NONE DETECTED (NONE DETECT)
--- NOTE | 2018-11-29 12:49 | CONSULTATION ---
DATE OF CONSULTATION: 11/29/2018 NEUROLOGY CONSULT: HISTORY OF PRESENT ILLNESS: Ms. Adams had neurologic event this morning. While observed, she had apparent generalized seizure. There may have been transient focal left hemiparesis. She is awake and alert now. History from attentive family, including sister and niece, is that patient has been depressed. She has been living alone, taking care of her own medications, probably making some mistakes. Family believes there has been documented period of opiate pain reliever misuse and likely also benzodiazepine misuse. Family reports ethanol use as probable "self-medication. " Family has noticed significant fluctuation in her level of attention and level of awareness in recent weeks or months. She has had some falls. She fell and injured her left arm, including left wrist fracture. This morning, family noticed generalized clonic seizure. Family has not witnessed seizure at home. Workup today includes noncontrast CT showing nothing remarkable. Urine drug screen this admission was positive for opiates, consistent with her home medicine list including hydrocodone. CK was elevated at 351 on presentation, came down to 107, and back up to 658 after episode this morning. Chemistry profile is otherwise unremarkable. She has been afebrile. Systolic blood pressures have been stable 130s to 170s. PHYSICAL EXAMINATION: On exam, Ms. Adams is awake, alert, attentive. She answered some questions appropriately. She was not able to answer correctly regarding orientation, and I did not test her cognitive function thoroughly. Speech is minimally dysarthric, but easily understood. Language function is intact on brief bedside testing. Remote memory is good. Head is unremarkable. Neck is supple without meningismus. She guards her left arm. proximally and left arm is immobilized distally She did not demonstrate good power in any group in the left arm, including the proximal muscles. She demonstrated good power symmetrically in the legs and she has good power in the right arm. She moved her left fingers inside the cast. She was not attentive to usual sensory testing. Plantar response is extensor bilaterally. Reflexes are absent at the ankles bilaterally. I did not test her gait. She has full visual hodge tested grossly by confrontational finger counting. Extraocular movements are full. Facial motility seems a little bit diminished bilaterally, but symmetric. Tongue is midline. She can hear. IMPRESSION: 1. History suggests seizure today and raises concern for possible previous seizure to account for some of her fluctuating confusion and awareness at home and possibly to account for some of her falls. Reason for seizure is not certain, but seems likely related to benzodiazepine withdrawal. According to family, there may have also been alcohol intoxication and withdrawal contributing. 2. Report that she had left-sided weakness this morning. On my exam, she guards her left arm, but I am not certain there is definite weakness. Left wrist is immobilized. The findings around the left shoulder may be attributed to discomfort there. We can follow this clinically. If there appears to be a persistent focal neurologic deficit, we might consider brain MRI and other workup. 3. In addition to all this, I suspect she has a baseline cognitive impairment syndrome. That is difficult to prove in the current setting. This could be related to drug use and might improve with supervision of medications. We might follow up with her as an outpatient to better assess cognitive function later. I do not have any urgent suggestion. I will order EEG for completeness and that may not be done until tomorrow. She had 1 dose of 0.5 mg lorazepam and has not needed that again. Levetiracetam 500 mg q.12 h. was started this morning, and that can be continued until we see EEG and clinical course. She did have evidence of acute renal failure earlier, but creatinine is down to 0.9 today, and I do not think we will have any problems with this levetiracetam dose. Thanks for asking Neurology to see Ms. Adams. cc: MD Jae Reeves III, MD MTDD
--- NOTE | 2018-11-29 17:54 | PROGRESS NOTE ---
DATE: 11/29/2018 Ms. Adams was canceled for surgery today due to a new onset mental status changes and possible stroke. She is temporary immobilized through the wrist. We will be signing off at this point in time. Please re-consult us when she is cleared for surgery to re-evaluate the prognosis for her wrist fracture. I will be available as needed. cc: MD Jae Kern MD
[2018-11-29] MEDS: KEPPRA 500 MG in NS 100 ML IV SCH ×2 (19:48→20:10)
[2018-11-29] MEDS: PROTONIX IV SCH (19:49)
[2018-11-29] MEDS: LOVENOX SUBQ SCH (19:49)
[2018-11-29] MEDS: THIAMINE 100 MG in NS 50 ML IV SCH (21:54)
[2018-11-29] MEDS: FOLIC ACID 5 MG in NS 50 ML IV SCH (21:54)
--- NOTE | 2018-11-29 22:21 | Carotid Study ---
DATE: 11/29/2018 PROCEDURE: Bilateral carotid duplex imaging. REFERRING PHYSICIAN: Dr. Jae Lindo. INTERPRETING PHYSICIAN: Dr. Elly Dixon. TECH: [place]. INDICATIONS: Code stroke. OBSERVED DATA RIGHT LEFT Brachial Blood Pressure Carotid Pulse Bruits: Carotid/Sub DIAGRAM OF ULTRASOUND IMAGING R L RIGHT INT EXT INT EXT LEFT Murray (cm/s) Murray (cm/s) Subclavian 86/0 Subclavian 68/0 CCA Proximal 64/13 CCA Proximal 103/14 CCA Distal 67/17 CCA Distal 53/11 Bulb 63/19 Bulb 50/14 ICA Proximal 46/13 ICA Proximal 44/13 ICA Mid 87/27 ICA Mid 77/21 ICA Distal 109/35 ICA Distal 121/29 ECA 59/8 ECA 51/5 Vertebral 52/12 A Vertebral 46/14 A ICA/CCA Ratio 1.62 ICA/CCA Ratio 1.17 % Stenosis 0-39 % Stenosis 40-59 FINDINGS: There is no obvious focal plaque disease noted; however, in the carotid artery distally, the velocities would correlate to a 40-59 lesion, although it does appear somewhat tortuous, and it is possible that this elevation of velocity is related to the tortuosity and not so much a hemodynamically significant lesion. SUMMARY: Possible mild to moderate stenosis on the left, but no significant atherosclerotic changes noted on the right. cc: MD Jae Dawson MD
--- NOTE | 2018-11-29 22:57 | PROGRESS NOTE ---
DATE: 11/29/2018 This is a level 3 documentation. SUBJECTIVE: She was supposed to go for wrist fracture repair this morning by Dr. May. In between around 7:00, the patient was unresponsive, weakness on the left side. [facility] team was called in. The patient was transferred to the emergency room. ER physician notified that there was some weakness on the left side. Workup was in progress for evaluation of stroke. Dr. Brower was consulted, and EKG was in sinus. By the time I got to the emergency room, the patient started having seizing and tongue bite as well as postictal state. She was arousable. Patient's sister at bedside. Apparently, she has been using narcotics and drinking alcohol. CT head was negative for bleed, and she was not a candidate for tPA. She was given Ativan and Keppra. Waiting to be admitted in ICU back. As a result, left wrist fracture repair has been postponed. REVIEW OF SYSTEMS: Not able to obtain. PHYSICAL EXAMINATION: Low-grade fever. Blood pressure is stable. Tachycardic. HEENT: Has ecchymosis of the right eyelid. Has tongue bite. Neck: Supple. Chest: Has bilateral air entry. Heart: Sounds are regular. Abdomen: Belly is soft and nontender. Extremities: Left wrist, a cast was placed. No obvious deficits noted. INVESTIGATIONS: CBC: White cell count 16.38, hematocrit 38, platelets 228, 000. PT/INR was normal. SMA-7: Sodium 143, potassium 3.4, chloride 111, BUN 18, creatinine 0.9. LFTs were normal. CK was 658. Cardiac enzymes were negative. Cholesterol 197, HDL 39. ASSESSMENT AND PLAN: 1. 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 No definitive deficits noted. We will give IV Ativan and IV Keppra. Gentle hydration. 2. Right eye blepharitis, on tobramycin. 3. Left wrist fracture. Hold the surgery. 4. Gastrointestinal prophylaxis with IV Protonix. 5. Deep venous thrombosis prophylaxis with Lovenox. 6. Also initiate thiamine and folic acid. watch for aspiration precautions. 7. Appreciate Dr. Brower's and Dr. May's consults. LEVEL OF DOCUMENTATION: 35 minutes. cc: Jae Lindo MD [facility] CENTERHema
[2018-11-30] MEDS: TOBREX OPH SOLN BOTH EYES SCH ×8 (00:44→21:10)
[2018-11-30] MEDS: ATIVAN IV PRN (02:48)
[2018-11-30] MEDS: PAXIL PO SCH (09:06)
[2018-11-30] MEDS: KEPPRA 500 MG in NS 100 ML IV SCH ×3 (09:07→21:10)
[2018-11-30] MEDS: ICAR-C PLUS PO SCH (09:07)
[2018-11-30] MEDS: NS 1,000 ML IV SCH (09:07)
[2018-11-30] MEDS: REVIA PO SCH (09:08)
--- NOTE | 2018-11-30 10:14 | Diag Imaging Result Doc PS360 ---
EXAM: CHEST-2 VIEWS 11/30/2018 HISTORY: SOB TECHNIQUE: AP upright and lateral chest COMMENT: Considering differences in technique there has been no significant change since 11/29/2018. IMPRESSION: No acute disease. Electronically signed by Jeffrey Ocampo 11/30/2018 10:12 AM
--- NOTE | 2018-11-30 13:18 | PROGRESS NOTE ---
DATE: 11/30/2018 Ms. Adams is awake and alert. She reports she is not aware of any further episodes, but admits she did not realize she had the episode yesterday. Witnessed reports of episode yesterday are typical of generalized seizure, but there was transient focal deficit with left hemiparesis. Her EEG today shows some muscle contraction artifact and nothing else remarkable, specifically no definite epileptiform discharge. In light of her stable course, apparent medication mistakes as explanation for seizure, and negative EEG, I do not think we have to do anything further. I believe we could discontinue levetiracetam prior to discharge and reconsider management with seizure medicines if she has more episodes. Thanks for asking Neurology to see Ms. Adams. I will be glad to see her as an outpatient, if needed. cc: MD Jae Reeves III, MD MTDD
--- NOTE | 2018-11-30 14:00 | EEG REPORT ---
DATE: 11/29/2018 DATE OF STUDY: 11/30/2018. COMMENT: This is a digitally recorded EEG on a 68-year-old patient with apparent recent seizures. FINDINGS: Muscle contraction artifact is prominent throughout. During waking, there is polymorphic and rhythmic theta at low amplitude across the hemispheres symmetrically. Sustained posterior dominant rhythm was not identified. Drowsing and stage II sleep were recorded with symmetric features. Photic stimulation did not significantly alter the record. No definite epileptiform discharge was identified. INTERPRETATION: Normal electroencephalogram. CORRELATION: The absence of epileptiform discharges on a single EEG does not exclude a clinical diagnosis of seizures. cc: MD Jae Reeves III, MD
--- NOTE | 2018-11-30 14:43 | ECHO REPORT ---
ORDER DATE: 11/29/2018 INDICATIONS: Stroke. FINDINGS: 1. Right atrium appears normal size at 2.3 cm. 2. Mild tricuspid regurgitation. RV systolic pressure of 42. 3. Normal RV size and systolic function. 4. No significant pulmonic insufficiency. 5. Normal left atrial size at 3 cm. 6. No mitral valve prolapse, mild mitral regurgitation. 7. Normal LV size, end-diastolic dimension of 4.2. Normal wall thicknesses with a posterior and interventricular septal wall thickness is 0.6 and 0.7 cm respectively. Normal LV systolic function. Calculated EF of 69% with normal wall motion. 8. Aortic valve opens well. No evidence of stenosis or insufficiency. 9. Aorta appears normal visualized segments. 10. No pericardial effusion seen. cc: MD Jae Bobo MD
--- NOTE | 2018-11-30 18:45 | PROGRESS NOTE ---
DATE: 11/30/2018 SUBJECTIVE: The patient is wide awake and confusion is better. Family at bedside. The patient is on seizure precautions. REVIEW OF SYSTEMS: Cough and wheezing. OBJECTIVE: On exam, temperature is 97 degrees, pulse is 82, blood pressure is 137/66. HEENT exam: Some blepharitis and chemosis on the right eye noted. Neck is supple. No lymphadenopathy. Chest: Bilateral wheezing. Heart sounds are regular. Belly is soft, nontender. DIAGNOSTIC DATA: Chest x-ray: No acute disease. ASSESSMENT AND PLAN: 1. Altered mental status due to seizures from withdrawals. 2. Bronchitis. Bronchodilators. 3. Gentle intravenous fluids. 4. For seizures we will use the Ativan as needed for withdrawals from alcohol and pain medicine, and also started on naltrexone 50 mg daily. Continue intravenous thiamine, intravenous folic acid. 5. Deep venous thrombosis and gastrointestinal prophylaxis with Lovenox and Protonix, respectively. 6. We will slowly detoxify. 7. Chronic depression, on Paxil. 8. The patient did pass the swallowing study. Advance the diet. Possible rehab after detoxification over the weekend. Discussed with the family at bedside. Level of documentation was 25 minutes. cc: Jae Lindo MD
[2018-11-30] MEDS: LOVENOX SUBQ SCH (19:55)
[2018-11-30] MEDS: PROTONIX IV SCH (19:55)
[2018-11-30] MEDS: THIAMINE 100 MG in NS 50 ML IV SCH ×2 (21:12→22:57)
[2018-11-30] MEDS: FOLIC ACID 5 MG in NS 50 ML IV SCH (21:13)
[2018-12-01] MEDS: TOBREX OPH SOLN BOTH EYES SCH ×6 (00:16→21:59)
[2018-12-01] MEDS: NS 1,000 ML IV SCH (05:17)
[2018-12-01 05:34] LABS: BASO# 0.07 X1000 (0.0-0.2); BASO% 0.6 % (0.0-0.8); EOS# 0.53 X1000 (0.0-0.7); EOS% 4.6 % (0.0-10.0); HEMOGLOBIN 10.9 g/dL (12.0-16.0); IMM GRAN# 0.03 X1000 (0.0-0.04); IMM GRAN% 0.3 % (0.0-0.5); LYMPH# 1.56 X1000 (1.2-3.4); LYMPH% 13.6 % (20.5-51.1); MCH 32.2 PG (27-31); MCV 97.6 FL (81-99); MONO# 0.72 X1000 (0.11-0.59); MONO% 6.3 % (1.7-9.3); MPV 10.8 FL (7.4-10.4); NEUT# 8.56 X1000 (1.4-6.5); NEUT% 74.6 % (42.2-75.2); PLT 190 X1000 (130-400); RBC 3.38 XMIL (4.2-5.4); RDW 12.6 % (11.5-14.5); WBC 11.47 X1000 (4.8-10.8)
[2018-12-01 06:10] LABS: AGAP 13; BUN 10 mg/dL (8-22); CALCIUM 8.2 mg/dL (8.8-10.2); CHLORIDE 110 mmol/L (98-107); COSMO 278; CREATININE 0.7 mg/dL (0.5-0.9); ESTIMATED GFR > 60; GLUCOSE 88 mg/dL (70-104); POTASSIUM 3.1 mmol/L (3.5-5.1); SODIUM 140 mmol/L (136-145); TCO2 17 mmol/L (25-35)
[2018-12-01] MEDS: DUONEB (A & A) INH PRN ×2 (08:08→20:10)
[2018-12-01] MEDS: REVIA PO SCH (08:26)
[2018-12-01] MEDS: KEPPRA 500 MG in NS 100 ML IV SCH ×2 (08:26→21:58)
[2018-12-01] MEDS: PAXIL PO SCH (08:26)
[2018-12-01] MEDS: ICAR-C PLUS PO SCH (08:26)
[2018-12-01] MEDS: NICODERM PATCH TD SCH (11:29)
--- NOTE | 2018-12-01 12:30 | PROGRESS NOTE ---
DATE: 12/01/2018 SUBJECTIVE: The patient is alert, awake, not complaining of anything at this time. She does not seem altered in her mental status at all at this time. OBJECTIVE: Vital Signs: Blood pressure is 135/74, respirations 18, pulse 80, temperature 97.3 degrees. HEENT: She is normocephalic. EOMS intact. PERRLA. Throat clear. Lungs: Clear to auscultation and percussion without rhonchi, rales, or wheezes. Heart: Regular rate and rhythm without murmurs, gallops, friction rubs. Abdomen: Soft. Active bowel sounds. No organomegaly or tenderness. She has a cast on the left for Colles fracture. ASSESSMENT: 1. Altered mental status now resolving. 2. Probable syncope. 3. Fall. 4. Colles fracture left wrist. 5. Tobacco addiction and wishes to go on NicoDerm patches. 6. Bronchitis. 7. Questionable withdrawal from pain medication. PLAN: Continue care. Consider rehab. cc: MD Jae Martniez Jr, MD
[2018-12-01] MEDS: THIAMINE 100 MG in NS 50 ML IV SCH (21:58)
[2018-12-01] MEDS: PROTONIX IV SCH (21:59)
[2018-12-01] MEDS: LOVENOX SUBQ SCH (21:59)
[2018-12-01] MEDS: FOLIC ACID 5 MG in NS 50 ML IV SCH (21:59)
[2018-12-02] MEDS: TOBREX OPH SOLN BOTH EYES SCH ×6 (01:15→21:52)
[2018-12-02] MEDS: NS 1,000 ML IV SCH (01:22)
[2018-12-02] MEDS: VITAMIN D PO SCH (05:35)
[2018-12-02] MEDS: KEPPRA 500 MG in NS 100 ML IV SCH ×2 (09:58→21:50)
[2018-12-02] MEDS: REVIA PO SCH (09:58)
[2018-12-02] MEDS: NICODERM PATCH TD SCH (09:58)
[2018-12-02] MEDS: PAXIL PO SCH (09:58)
[2018-12-02] MEDS: ICAR-C PLUS PO SCH (09:58)
[2018-12-02] MEDS: FLONASE NAS SCH ×2 (11:39→21:51)
[2018-12-02] MEDS: ZYRTEC PO SCH (11:39)
--- NOTE | 2018-12-02 11:43 | PROGRESS NOTE ---
DATE: 12/02/2018 SUBJECTIVE: The patient says she is feeling better. She slept the best she slept so far. However, her allergies are bothering her. She usually takes some Chlor-Trimeton at home to try to get her a little something for her allergies. OBJECTIVE: Vital Signs: Blood pressure of 127/74, respirations 18, pulse 84, temperature 97.9 degrees Fahrenheit. Oxygen saturation on 3 L is 100%. HEENT: She is normocephalic. EOMS intact. PERRLA. Throat clear. Lungs: Clear to auscultation and percussion without rhonchi, rales, or wheezes. Heart: Regular rate and rhythm without murmurs, gallops, friction rubs. Abdomen: Soft. Active bowel sounds. No organomegaly or tenderness. Neurological exam: Intact grossly. Patient is oriented x3. ASSESSMENT: 1. Altered mental status. 2. Fall. 3. Colles fracture on the left. 4. Allergic rhinitis. PLAN: Will help with allergies. cc: MD Jae Martinez Jr, MD
[2018-12-02] MEDS: THIAMINE 100 MG in NS 50 ML IV SCH (21:51)
[2018-12-02] MEDS: FOLIC ACID 5 MG in NS 50 ML IV SCH (21:51)
[2018-12-02] MEDS: LOVENOX SUBQ SCH (21:51)
[2018-12-02] MEDS: PROTONIX IV SCH (21:51)
[2018-12-03] MEDS: NS 1,000 ML IV SCH ×3 (01:32→20:37)
[2018-12-03] MEDS: TOBREX OPH SOLN BOTH EYES SCH ×6 (01:32→20:38)
[2018-12-03] MEDS: ZYRTEC PO SCH (09:18)
[2018-12-03] MEDS: REVIA PO SCH (09:18)
[2018-12-03] MEDS: NICODERM PATCH TD SCH (09:18)
[2018-12-03] MEDS: KEPPRA 500 MG in NS 100 ML IV SCH ×2 (09:18→20:37)
[2018-12-03] MEDS: PAXIL PO SCH (09:18)
[2018-12-03] MEDS: ICAR-C PLUS PO SCH (09:18)
[2018-12-03] MEDS: FLONASE NAS SCH ×2 (09:19→20:38)
--- NOTE | 2018-12-03 09:53 | PROGRESS NOTE ---
DATE: 12/03/2018 SUBJECTIVE: Ms. Adams reports no more episodes of altered awareness, memory gap, mohinder seizure, or other neurologic change. OBJECTIVE: On exam, she is awake, alert, attentive, appropriate. Speech is not dysarthric. Language function is intact. There is no definite focal deficit on brief bedside testing. IMPRESSION: Recent seizure, possible transient left hemiparesis. She had negative workup including unremarkable EEG and stable course. We have evidence of clear medication mistakes as explanation for her seizure, likely mostly benzodiazepine withdrawal. In this setting, I do not think we have to continue seizure medicine long-term. I would discontinue levetiracetam prior to discharge. Thanks for asking Neurology to see Ms. Adams. cc: MD Jae Reeves III, MD
[2018-12-03] MEDS: PROTONIX IV SCH (20:37)
[2018-12-03] MEDS: LOVENOX SUBQ SCH (20:37)
[2018-12-03] MEDS: THIAMINE 100 MG in NS 50 ML IV SCH (21:54)
[2018-12-03] MEDS: FOLIC ACID 5 MG in NS 50 ML IV SCH (21:55)
--- NOTE | 2018-12-04 04:50 | PROGRESS NOTE ---
DATE: 12/03/2018 SUBJECTIVE: No events noted over the weekend. The patient is more alert. No seizure activity. Discussed with the sister. Left wrist surgery has been postponed and complains of URI symptoms, Dr. March started her on some decongestants. The patient still has a Barnard catheter. OBJECTIVE: Vital signs: Temperature is 98 degrees, pulse is 83, blood pressure is 146/86, O2 saturation is 97% on 3 L. HEENT: Reduced swelling over the conjunctiva on the right side. Postnasal drainage. Lungs: Some scattered wheezing. Heart: Sounds are regular. Abdomen: Belly is soft, nontender. Neurologic: No neurological deficits. LABORATORY INVESTIGATIONS: White cell count 11, hematocrit 33, platelets 193,000. SMA-7: Potassium 3.1. No labs were drawn. Blood cultures were negative. Chest x-ray on 11/30/2018, no acute disease. ASSESSMENT AND PLAN: 1. Withdrawal seizures from alcohol and pain medicines, on Keppra. 2. Altered mental status. Carotid Dopplers were -40-59% on the left side. CT head was negative. 3. Chronic pain detox with naltrexone. 4. Left wrist fracture. Continue on splint. 5. Upper respiratory infection symptoms on Zyrtec for wheezing and bronchodilators. 6. Deep venous thrombosis prophylaxis with Lovenox. 7. Discontinue [place]. Recheck the labs in the morning. Discussed with the family. Waiting for rehab for detox for 3 weeks. LEVEL OF DOCUMENTATION: 35 minutes. cc: Jae Lindo MD
[2018-12-04] MEDS: TOBREX OPH SOLN BOTH EYES SCH ×3 (05:05→12:54)
[2018-12-04 05:37] LABS: BASO# 0.05 X1000 (0.0-0.2); BASO% 0.4 % (0.0-0.8); EOS# 0.36 X1000 (0.0-0.7); HEMATOCRIT 32.6 % (37.0-47.0); HEMOGLOBIN 10.9 g/dL (12.0-16.0); IMM GRAN# 0.03 X1000 (0.0-0.04); IMM GRAN% 0.3 % (0.0-0.5); LYMPH# 1.67 X1000 (1.2-3.4); LYMPH% 13.9 % (20.5-51.1); MCH 32.7 PG (27-31); MCHC 33.4 g/dL (33-37); MCV 97.9 FL (81-99); MONO# 0.73 X1000 (0.11-0.59); MONO% 6.1 % (1.7-9.3); MPV 11.3 FL (7.4-10.4); NEUT# 9.16 X1000 (1.4-6.5); NEUT% 76.3 % (42.2-75.2); PLT 261 X1000 (130-400); RBC 3.33 XMIL (4.2-5.4); RDW 12.5 % (11.5-14.5)
[2018-12-04 05:57] LABS: AGAP 12; BUN 5 mg/dL (8-22); CALCIUM 8.4 mg/dL (8.8-10.2); CHLORIDE 111 mmol/L (98-107); COSMO 281; CREATININE 0.6 mg/dL (0.5-0.9); ESTIMATED GFR > 60; GLUCOSE 82 mg/dL (70-104); SODIUM 143 mmol/L (136-145); TCO2 20 mmol/L (25-35)
[2018-12-04] MEDS ORDERED: PREVNAR 13 IM ONE (07:53)
[2018-12-04] MEDS ORDERED: KLOR-CON PO ONE (08:09)
--- NOTE | 2018-12-04 08:48 | Diag Imaging Result Doc PS360 ---
CHEST-2 VIEWS - 12/04/2018 INDICATION: hypoxia COMPARISON: 11/30/2018 FINDINGS: There is probably a small left pleural effusion. No focal infiltrates. Heart size and pulmonary vascularity are normal. No evidence of pulmonary edema. IMPRESSION: Small left pleural effusion. Electronically signed by Reji Thao 12/04/2018 8:45 AM
--- NOTE | 2018-12-04 09:18 | DISCHARGE SUMMARY ---
ADMISSION DATE: 11/24/2018 DISCHARGE DATE: 12/04/2018 DISCHARGING DIAGNOSES: 1. Altered mental status due to withdrawal from alcohol and chronic pain medicines. 2. Seizures due to withdrawals from chronic pain. 3. Left wrist fracture in cast. 4. Depression. 5. Hypertension. 6. Hemorrhoids. 7. Hyperlipidemia. 8. Hiatal hernia. 9. Chronic nicotine dependency. 10. Osteoarthritis. 11. Dehydration with hyperkalemia. CONSULTANTS: 1. Dr. Brower. 2. Dr. May. PROCEDURES: 1. CT head. No evidence of acute intracranial disease. 2. Carotid Dopplers, 40 to 50 percent stenosis in the left distal internal carotid artery. Now hemodynamic stenosis. 3. EEG was normal. BRIEF HISTORY: In brief, she is a 68-year-old white female, came to the hospital by EMS with altered mental status, near syncope and had a fall several times, sustained injury to the left wrist with a distal radius fracture. Apparently, patient has been drinking alcohol and also chronic pain in the pain clinic. For the last few days, patient is confused. HOSPITAL COURSE: 1. The patient was initially dehydrated with hyperkalemia. The patient was given IV fluids and followup hydration renal function test came back normal. She also has low potassium which was replaced. 2. She has a left wrist fracture, seen by Dr. May. He wants to do open reduction and internal fixation. 3. However, her hospital course was prolonged due to withdrawal seizures. The patient was seen by neurologist. She did not have any structural lesions in the brain which is normal EEG, normal CT head, normal carotid Dopplers. 4. She did not have any neurological deficits and the patient was given Ativan and Keppra. I would maintain the Keppra for a few months until she will completely detox from Alex, smoking and alcohol. She was also given IV thiamine, folic acid, multivitamins. Dr. May has postponed the surgery until she is medically stable. Family requested to go for rehab for convalescence. She was started on naltrexone for detox for chronic pain and Keppra temporarily to prevent the seizures for the next few months. 5. She has a chronic leukocytosis. Flow cytometry was negative for blasts in the in the past. LABORATORY DATA: CBC: White cell count 12, hematocrit 32, platelets 261,000. SMA 7: Sodium 143, potassium 3, chloride 111, BUN 5, creatinine 0.6, glucose 82. Urine toxic screen was negative except for hydrocodone. DISCHARGE INSTRUCTIONS/MEDICATIONS: 1. Initiate vaccination protocol prior to the discharge, Prevnar 13. 2. For pain, Tylenol as needed. 3. Sulindac 150 daily. 4. Vitamin D 50,000 units once a week. 5. Icar-C Plus 1 tablet daily. 6. Resume blood pressure medicine / after 2 weeks. 7. Prilosec 40 daily. 8. Paxil 20 daily. 9. Potassium 20 mEq daily. 10. Simvastatin 40 daily. 11. Cetirizine 10 daily. 12. Keppra 500 p.o. b.i.d. 13. Naltrexone 50 mg daily. 14. For insomnia, we can use trazodone as needed. 15. Follow up with Dr. May in 2 weeks and repeat the labs, CBC, SMA 7 in 1 week. cc: Jae Lindo MD
[2018-12-04] MEDS: REVIA PO SCH (09:50)
[2018-12-04] MEDS: NICODERM PATCH TD SCH (09:50)
[2018-12-04] MEDS: PAXIL PO SCH (09:50)
[2018-12-04] MEDS: ZYRTEC PO SCH (09:50)
[2018-12-04] MEDS: ICAR-C PLUS PO SCH (09:50)
[2018-12-04] MEDS: KEPPRA 500 MG in NS 100 ML IV SCH (09:50)
[2018-12-04] MEDS: FLONASE NAS SCH (10:01)
[2018-12-04 11:29] VITALS: BP 133/76
== END 2018-12-04 15:35 | DRG 897 ==
LOC: SUPCPDRO → ED 14:02 → ICU 17:43 → 4N 11-26 14:46 → 3S 11-29 08:50
PROVIDERS: ADMIT Internal Medicine; ATTEND Internal Medicine
CPT/HCPCS: 51702; 70450; 71010; 71020; 71045; 71046; 73110; 80048; 80053; 80061; 80101; 80301; 80307; 80324; 80345; 80346; 80353; 80358; 80361; 80365; 81001; 82248; 82550; 82553; 82607; 82805; 82948; 83036; 83605; 83721; 83880; 83992; 84443; 84484; 85025; 85384; 85610; 85651; 85730; 86850; 86900; 86901; 87040; 90670; 93005; 93010; 93306; 93880; 94640; 94761; 95816; 97162; 97530; 99285; A9270; C8929; C9113; G0431; G0434; G0479; G0480; J1650; J1953; J2060; J3411; J3480; J7030; J7040; Q9957; S0164; XXXXX

== ENCOUNTER 2019-01-10 12:42 | Inpatient (IN) ==
--- NOTE | 2019-01-10 14:52 | Diag Imaging Result Doc PS360 ---
CT HEAD W/O CONTRAST - 01/10/2019 INDICATION: AMS COMPARISON: 11/29/2018 FINDINGS: The ventricles and sulci are normal in size and contour. No intracranial mass or hemorrhage. There is some mild stable chronic microvascular disease in the cerebral white matter and pippa. The skull is intact. The sinuses, mastoids, and middle ears are clear. IMPRESSION: No acute disease or change from prior. This exam was performed using automated exposure control, adjustment of mA or kV according to patient size, and/or use of iterative reconstruction technique Electronically signed by Reji Thao 01/10/2019 2:49 PM
[2019-01-10] MEDS: NS 1,000 ML IV SCH (15:05)
[2019-01-10 15:38] LABS: BASO# 0.07 X1000 (0.0-0.2); BASO% 0.3 % (0.0-0.8); EOS# 0.04 X1000 (0.0-0.7); EOS% 0.2 % (0.0-10.0); HEMATOCRIT 39.7 % (37.0-47.0); HEMOGLOBIN 13.5 g/dL (12.0-16.0); IMM GRAN# 0.13 X1000 (0.0-0.04); IMM GRAN% 0.6 % (0.0-0.5); LYMPH# 1.47 X1000 (1.2-3.4); MCH 31.8 PG (27-31); MCV 93.4 FL (81-99); MONO# 1.25 X1000 (0.11-0.59); MPV 12.4 FL (7.4-10.4); NEUT# 18.01 X1000 (1.4-6.5); NEUT% 85.9 % (42.2-75.2); PLT 323 X1000 (130-400); RBC 4.25 XMIL (4.2-5.4); RDW 13.2 % (11.5-14.5); WBC 20.97 X1000 (4.8-10.8)
[2019-01-10 15:49] LABS: INR 1.05; PROTIME 14.5 Seconds (11.0-16.0)
[2019-01-10 16:09] LABS: ALB/GLOB RATIO 1.8; ALBUMIN 4.4 g/dL (3.5-5.0); CALCIUM 9.7 mg/dL (8.8-10.2); CREATININE 2.5 mg/dL (0.5-0.9); MAGNESIUM 1.8 mg/dL (1.5-2.7); POTASSIUM 4.7 mmol/L (3.5-5.1); TOTAL BILIRUBIN 1.27 mg/dL (0.20-1.00); TOTAL PROTEIN 6.9 g/dL (6.3-8.3)
[2019-01-10 16:11] LABS: EOS 1 % (1-10); LYMPHS 11 % (21-51); MONO 4 % (1-9); SEGS 84 % (42-75)
[2019-01-10 17:23] LABS: URINE SOURCE CATH
[2019-01-10 17:27] LABS: BILIRUBIN URINE NEGATIVE (NEGATIVE); BLOOD URINE TRACE (NEGATIVE); COLOR YELLOW; GLUCOSE URINE NEGATIVE (NEGATIVE); KETONE URINE TRACE mg/dL (NEGATIVE); LEUKOCYTES URINE LARGE (NEGATIVE); NITRITE URINE NEGATIVE (NEGATIVE); PROTEIN URINE 30 mg/dL (NEGATIVE); SP GRAVITY URINE 1.015; TURBIDITY URINE HAZY (CLEAR); UROBILINOGEN URINE NORMAL (NORMAL)
[2019-01-10 17:29] LABS: UR EPITHELIAL CELLS <10 /HPF (<10); URINE BACTERIA NEGATIVE /HPF; URINE RBC <10 /HPF (<10); URINE WBC TNTC /HPF (<10)
[2019-01-10] MEDS ORDERED: SODIUM CHLORIDE 0.9% INJ SCH (21:45)
--- NOTE | 2019-01-10 22:08 | HISTORY AND PHYSICAL ---
SUBJECTIVE: The patient is repeatedly falling. The patient is very frigid, restless as per the family since she was discharged from the last hospital. She has been drinking again. She also has history of withdrawal seizures. Her blood pressure is running low. Creatinine is up. HISTORY OF PRESENT ILLNESS: She is a 68-year-old white female, came back with the caregiver with the above symptoms. The patient is orthostatic. Acute kidney injury and possible withdrawals. She had a fall, sustained injury to the right ear and the left foot. In the past the patient had injury to the left wrist with radial fracture. Admitted to the hospital for impending withdrawals and prone for injuries, as well as needs IV fluids. PAST MEDICAL HISTORY: Left Colles fracture, depression, seizures due to withdrawal, hypertension off/on pills, hemorrhoids, hiatal hernia, hyperlipidemia, nicotine dependency, osteoarthritis, history of narcotic and alcohol use. PAST SURGICAL HISTORY: Right inguinal hernia repair. MEDICATIONS: Simvastatin 40 daily; Paxil 20 daily; Prilosec 40 daily; vitamin D 50,000 units once a week; potassium 20 mEq daily; naltrexone 50 daily; cetirizine 10 daily; Keppra 500 p.o. b.i.d.; sulindac 150 daily; Zofran as needed. ALLERGIES: Penicillin and sulfa. SOCIAL HISTORY: , lives in [place]. Used to smoke and drink, and also chronic pain use. FAMILY HISTORY: Father of prostate cancer at 75. Mother with heart failure at 93. HEALTH MAINTENANCE: Flu shot 09/2018; mammography 09/2018; DEXA scan 2017; colonoscopy and EGD by Dr. Prescott in 2013. REVIEW OF SYSTEMS: HEENT: Injury to the right side of the head. No headache. No vision problems. No swallowing difficulties. No neck pain. Cardiopulmonary: No chest pain, shortness of breath, PND or orthopnea. GI: No nausea, vomiting or abdominal pain. : No history of dysuria, hesitancy, frequency. History of injury to the left foot with bruises and deformity on the left wrist from the old radial fracture. The patient is very restless and agitated. PHYSICAL EXAMINATION: VITAL SIGNS: Temperature is 97 degrees, tachycardic. Vital signs are stable. GENERAL: Five feet 2 inches, 129 pounds. HEENT: Atraumatic, normocephalic. Pupils equal and reactive to light. Throat is in midline. NECK: Supple. No lymphadenopathy. CHEST: Bilateral air entry. HEART: Sounds are regular. ABDOMEN: Belly is soft, nontender. EXTREMITIES: No peripheral edema or cyanosis. NEUROLOGIC: No obvious neurological deficits noted. LABORATORY DATA: CBC: White cell count 20, hematocrit 39, platelets 323,000. PT 14, INR 1.0. SMA 7: Sodium 136, potassium 4.7, BUN 34, creatinine 2.5, bilirubin 1.27. Urinalysis is positive for infection. ASSESSMENT AND PLAN: 1. A 68-year-old white female admitted to the hospital with withdrawal from chronic pain and alcohol, prone for withdrawal seizures, associated with hypotension, acute kidney injury, possible urinary tract infection. Plan of care: (1) Intravenous fluids. (2) Follow up on culture and sensitivity. 2. Chronically elevated white cell count. Negative flow cytometry. 3. Withdrawal seizures, on temporary Keppra. 4. Old left wrist fracture, stable. 5. Head injury on the right side. CT head. 6. Withdrawal from alcohol and pain medicine. Continue on naltrexone. 7. Depression, on Paxil. We will use lorazepam 0.5 intravenous q.6 as needed. 8. Reconcile home medications. Discussed the plan of care with family, and followup. cc: Jae Lindo MD
[2019-01-10] MEDS: LEVAQUIN 500 MG/D5W 500 MG/100 ML IVPB IV SCH (22:10)
[2019-01-10] MEDS: PROTONIX IV SCH (22:10)
[2019-01-11] MEDS: NS 1,000 ML IV SCH ×2 (04:18→18:58)
[2019-01-11 07:49] LABS: BASO# 0.05 X1000 (0.0-0.2); BASO% 0.4 % (0.0-0.8); EOS# 0.35 X1000 (0.0-0.7); EOS% 2.9 % (0.0-10.0); HEMATOCRIT 36.3 % (37.0-47.0); HEMOGLOBIN 12.3 g/dL (12.0-16.0); IMM GRAN# 0.07 X1000 (0.0-0.04); IMM GRAN% 0.6 % (0.0-0.5); LYMPH# 1.58 X1000 (1.2-3.4); LYMPH% 13.1 % (20.5-51.1); MCHC 33.9 g/dL (33-37); MCV 94.5 FL (81-99); MONO# 0.78 X1000 (0.11-0.59); MONO% 6.4 % (1.7-9.3); MPV 12.7 FL (7.4-10.4); NEUT# 9.27 X1000 (1.4-6.5); NEUT% 76.6 % (42.2-75.2); PLT 247 X1000 (130-400); RBC 3.84 XMIL (4.2-5.4); RDW 13.1 % (11.5-14.5)
[2019-01-11 08:20] LABS: CREATININE 1.5 mg/dL (0.5-0.9); POTASSIUM 3.2 mmol/L (3.5-5.1)
[2019-01-11] MEDS ORDERED: MAGNESIUM SULFATE 2 GM/S.W.I. 2 GM/50 ML IVPB IV ONE (08:48)
[2019-01-11] MEDS: KEPPRA PO SCH ×2 (09:11→20:20)
[2019-01-11] MEDS: ZYRTEC PO SCH (09:11)
[2019-01-11] MEDS: PAXIL PO SCH (09:11)
[2019-01-11] MEDS: REVIA PO SCH (09:11)
[2019-01-11] MEDS: POTASSIUM CHLORIDE 20 MEQ/SWI 20 MEQ/100 ML IVPB IV SCH ×2 (09:33→11:36)
[2019-01-11] MEDS ORDERED: ZOFRAN IV PRN (10:58)
[2019-01-11] MEDS: LEVAQUIN 500 MG/D5W 500 MG/100 ML IVPB IV SCH ×2 (20:20→22:22)
[2019-01-11] MEDS: PROTONIX IV SCH ×2 (20:20→22:22)
--- NOTE | 2019-01-11 20:23 | PROGRESS NOTE ---
DATE: 01/11/2019 SUBJECTIVE: The patient is a little better. Family wants to send her for rehab. She lives by herself. PHYSICAL EXAMINATION: Vital Signs: Temperature is 98 degrees, vitals are stable. HEENT: Within normal limits. Chest: Clear. Heart: Sounds are regular. Abdomen: Belly is soft, nontender. Good bowel sounds. Neurologic: No neurological deficits. INVESTIGATIONS: White cell count 12, hematocrit 36, platelets 247,000. SMA-7: Potassium 3.2, BUN 25, creatinine 1.5. Urine cultures were negative. ASSESSMENT AND PLAN: 1. Acute kidney injury due to dehydration. Hold the lisinopril. Continue IV fluids. Replace the potassium. 2. Withdrawal seizures. Temporarily on Keppra. 3. Left wrist fracture, stable. 4. Continue on Ativan and naltrexone for impending DTs and chronic pain. 5. Continue on Paxil for depression. 6. Digital Pre Press Operator consult for rehab placement on Monday. 7. Repeat the labs in the morning. Elevated white cell count. Negative flow cytometry workup in the past. No signs of infection noted. LEVEL OF DOCUMENTATION: 25 minutes. cc: Jae Lindo MD
[2019-01-12] MEDS: NS 1,000 ML IV SCH ×3 (02:46→15:47)
[2019-01-12 07:48] LABS: BASO# 0.06 X1000 (0.0-0.2); BASO% 0.5 % (0.0-0.8); EOS# 0.45 X1000 (0.0-0.7); EOS% 3.9 % (0.0-10.0); HEMATOCRIT 36.3 % (37.0-47.0); HEMOGLOBIN 12.2 g/dL (12.0-16.0); IMM GRAN# 0.06 X1000 (0.0-0.04); IMM GRAN% 0.5 % (0.0-0.5); LYMPH# 1.76 X1000 (1.2-3.4); LYMPH% 15.1 % (20.5-51.1); MCH 31.8 PG (27-31); MCHC 33.6 g/dL (33-37); MCV 94.5 FL (81-99); MONO% 6.9 % (1.7-9.3); MPV 12.4 FL (7.4-10.4); NEUT# 8.49 X1000 (1.4-6.5); NEUT% 73.1 % (42.2-75.2); PLT 243 X1000 (130-400); RBC 3.84 XMIL (4.2-5.4); RDW 13.2 % (11.5-14.5); WBC 11.62 X1000 (4.8-10.8)
[2019-01-12 07:54] LABS: CALCIUM 8.7 mg/dL (8.8-10.2); POTASSIUM 3.5 mmol/L (3.5-5.1)
[2019-01-12] MEDS: KEPPRA PO SCH (10:11)
[2019-01-12] MEDS: PAXIL PO SCH (10:11)
[2019-01-12] MEDS: ZYRTEC PO SCH (10:11)
[2019-01-12] MEDS: REVIA PO SCH (10:12)
--- NOTE | 2019-01-12 13:55 | PROGRESS NOTE ---
DATE: 01/12/2019 SUBJECTIVE: The patient is still withdrawn, confused, slowly improving, eating well. OBJECTIVE: Vitals: Temperature is 97 degrees, vitals are stable. HEENT: On exam slight chemosis noted. Chest: Clear. Heart: Heart sounds are regular. Abdomen: Soft, nontender. Good bowel sounds. Neurologic: No neurological deficits. INVESTIGATIONS: CBC: White cell count 11.6, hematocrit 36, platelets 243,000. SMA 7 is getting normal. ASSESSMENT AND PLAN: 1. Acute metabolic encephalopathy, improving. 2. Hypokalemia, replace the potassium. 3. Continue IV fluids. 4. Advance the diet. 5. Possible UTI, on IV Levaquin. Follow up on urine cultures were negative. 6. History of seizures due to withdrawal, on Keppra temporarily. 7. Continue detox with Ativan and naltrexone. Family decided to go for rehab. Pouncing Machine Operator consult and rehab on Monday. LEVEL OF DOCUMENTATION: 25 minutes. cc: Jae Lindo MD
[2019-01-12] MEDS: ATIVAN IV PRN ×2 (14:31→20:19)
[2019-01-12] MEDS: KEPPRA 500 MG in NS 100 ML IV SCH (15:47)
[2019-01-12] MEDS: M.V.I.-12 10 ML, FOLIC ACID 1 MG, MAGNESIUM SULFATE 1 GM, THIAMINE 100 MG in NS 1,000 ML IV SCH (17:18)
[2019-01-12] MEDS: LEVAQUIN 500 MG/D5W 500 MG/100 ML IVPB IV SCH (21:41)
[2019-01-12] MEDS: PROTONIX IV SCH (21:41)
[2019-01-13] MEDS: ATIVAN IV PRN ×3 (01:12→22:23)
[2019-01-13] MEDS: KEPPRA 500 MG in NS 100 ML IV SCH ×2 (03:08→15:11)
[2019-01-13] MEDS: NS 1,000 ML IV SCH (05:36)
[2019-01-13 06:03] LABS: BASO# 0.02 X1000 (0.0-0.2); BASO% 0.1 % (0.0-0.8); HEMATOCRIT 34.9 % (37.0-47.0); HEMOGLOBIN 11.9 g/dL (12.0-16.0); IMM GRAN# 0.07 X1000 (0.0-0.04); IMM GRAN% 0.4 % (0.0-0.5); LYMPH# 1.12 X1000 (1.2-3.4); MCH 32.1 PG (27-31); MCHC 34.1 g/dL (33-37); MCV 94.1 FL (81-99); MONO# 0.69 X1000 (0.11-0.59); MONO% 4.3 % (1.7-9.3); MPV 12.1 FL (7.4-10.4); NEUT# 14.11 X1000 (1.4-6.5); NEUT% 88.2 % (42.2-75.2); PLT 267 X1000 (130-400); RBC 3.71 XMIL (4.2-5.4); RDW 13.3 % (11.5-14.5); WBC 16.01 X1000 (4.8-10.8)
[2019-01-13 06:14] LABS: AGAP 12; BUN 12 mg/dL (8-22); CALCIUM 8.7 mg/dL (8.8-10.2); CHLORIDE 112 mmol/L (98-107); COSMO 283; CREATININE 0.9 mg/dL (0.5-0.9); ESTIMATED GFR > 60; GLUCOSE 103 mg/dL (70-104); POTASSIUM 3.9 mmol/L (3.5-5.1); SODIUM 142 mmol/L (136-145); TCO2 18 mmol/L (25-35)
[2019-01-13 06:59] LABS: MONO 2 % (1-9); SEGS 98 % (42-75)
--- NOTE | 2019-01-13 07:46 | Diag Imaging Result Doc PS360 ---
EXAM: CT HEAD W/O CONTRAST HISTORY: change in neuro status from baseline TECHNIQUE: CT head without contrast COMPARISON: 01/10/2019 FINDINGS: No parenchymal hemorrhage. No epidural or subdural hematoma. No subarachnoid hemorrhage. There are mild chronic microvascular ischemic changes. No mass identified on this noncontrasted exam. No hydrocephalus. No sinus opacification. IMPRESSION: No hemorrhage. Chronic microvascular ischemic changes. No definite change. This exam was performed using automated exposure control, adjustment of mA or kV according to patient size, and/or use of iterative reconstruction technique. Electronically signed by Tavares Mena 01/13/2019 7:44 AM
[2019-01-13] MEDS: PAXIL PO SCH (08:46)
[2019-01-13] MEDS: ZYRTEC PO SCH (08:46)
[2019-01-13] MEDS: REVIA PO SCH (08:46)
[2019-01-13] MEDS ORDERED: LASIX IV ONE (09:56)
[2019-01-13 10:25] LABS: URINE SOURCE CATH
[2019-01-13 10:28] LABS: BILIRUBIN URINE NEGATIVE (NEGATIVE); BLOOD URINE NEGATIVE (NEGATIVE); COLOR YELLOW; GLUCOSE URINE NEGATIVE (NEGATIVE); KETONE URINE TRACE mg/dL (NEGATIVE); LEUKOCYTES URINE NEGATIVE (NEGATIVE); NITRITE URINE NEGATIVE (NEGATIVE); PH URINE 5.5; PROTEIN URINE NEGATIVE (NEGATIVE); SP GRAVITY URINE 1.007; TURBIDITY URINE CLEAR (CLEAR); UROBILINOGEN URINE NORMAL (NORMAL)
[2019-01-13 10:30] LABS: UR EPITHELIAL CELLS <10 /HPF (<10); URINE BACTERIA NEGATIVE /HPF; URINE RBC <10 /HPF (<10); URINE WBC <10 /HPF (<10)
[2019-01-13] MEDS: CLINIMIX E 4.25%-5% SOLUTION 1,000 ML IV SCH (10:31)
[2019-01-13] MEDS: LOVENOX SUBQ SCH (10:31)
[2019-01-13] MEDS ORDERED: KEPPRA 1,000 MG/NS 1,000 MG/100 ML IVPB IV ONE (11:29)
--- NOTE | 2019-01-13 11:40 | Diag Imaging Result Doc PS360 ---
EXAM: CHEST-1 VIEW HISTORY: SOB TECHNIQUE: Chest single view COMPARISON: 12/04/2018 FINDINGS: The lungs are well expanded. The heart is not enlarged. The vessels are mildly distended. There are no infiltrates. No effusion identified. IMPRESSION: Borderline mild pulmonary edema Electronically signed by Tavares Mena 01/13/2019 11:38 AM
--- NOTE | 2019-01-13 13:43 | PROGRESS NOTE ---
DATE: 01/13/2019 SUBJECTIVE: Level 3 documentation. A 68-year-old, white female. Basically, the last 24 hours, significant change in the mental status. Nurses were calling me yesterday, she was kind of twitching after she came back from the bathroom. Subsequently, she had a full-blown seizure. She was given IV Keppra and Ativan, [facility] This morning, the patient was seen three times. The patient is awake, is getting mini seizures, postictal state, aspirating, not able to move. She is awake and not following with verbal commands. PHYSICAL EXAMINATION: Temperature is 98.8 degrees, pulse is 107, blood pressure is stable. HEENT Examination: Twitching. Chemosis of the eyelids. Neck: Supple. She had rhonchi on the right side. Heart sounds are tachycardic. Belly is soft and nontender. Not able to follow with verbal commands. LABS: White cell count 16, hematocrit 34.9, platelets 267,000. Sodium 142, potassium 3.9, chloride 112, BUN 12, creatinine 0.9. Urinalysis is clear. Chest x-ray, mild increase of pulmonary vasculature, possible atelectasis in the right lung. CT of head, chronic microvascular ischemic changes. No hemorrhage, ASSESSMENT AND PLAN: 1. Altered mental status with recurrent seizures due to withdrawal syndrome. Continue on intravenous Keppra and Ativan. 2. Neurology consult and repeat MRI of the brain and EEG in the morning. 3. Discontinue intravenous fluids. 4. Changing her to intravenous Clinimix 50 mL per hour. 5. Deep venous thrombosis prophylaxis with Lovenox. 6. Continue on intravenous Keppra and Ativan for seizure. 7. Gastrointestinal prophylaxis with intravenous Protonix. 8. Aspiration pneumonia. Diet, nothing per oral and intravenous Levaquin. Speech therapy evaluation. 9. Advanced care planning. Discussed with the caregiver, she does not have power of patent attorney. I spoke to the family, more than 35 minutes to coordinate the care. LEVEL OF DOCUMENTATION: 35 minutes. cc: Jae Lindo MD
[2019-01-13] MEDS: M.V.I.-12 10 ML, FOLIC ACID 1 MG, MAGNESIUM SULFATE 1 GM, THIAMINE 100 MG in NS 1,000 ML IV SCH (16:09)
[2019-01-13] MEDS: LEVAQUIN 500 MG/D5W 500 MG/100 ML IVPB IV SCH (21:16)
[2019-01-13] MEDS: PROTONIX IV SCH (21:16)
[2019-01-14] MEDS: ATIVAN IV PRN ×4 (02:50→19:31)
[2019-01-14] MEDS: KEPPRA 500 MG in NS 100 ML IV SCH ×2 (02:50→16:05)
[2019-01-14] MEDS: CLINIMIX E 4.25%-5% SOLUTION 1,000 ML IV SCH (06:03)
[2019-01-14] MEDS: PAXIL PO SCH (08:44)
[2019-01-14] MEDS: ZYRTEC PO SCH (08:45)
[2019-01-14] MEDS: REVIA PO SCH (08:45)
[2019-01-14] MEDS: LOVENOX SUBQ SCH (09:21)
--- NOTE | 2019-01-14 09:56 | Diag Imaging Result Doc PS360 ---
EXAM: MRI BRAIN W/WO CONTRAST 01/14/2019 HISTORY: CVA TECHNIQUE: T1 sagittal, axial, and post gadolinium-enhanced axial with coronal reformation, T2, FLAIR, DWI axial and coronal gradient echo. COMMENT: There is considerable patient motion on the T1 sagittal and axial exams. There are prominent perivascular spaces seen in the basal ganglia bilaterally. There are small areas of increased T2-weighted signal intensity present in the midbrain and pippa and in the subcortical white matter of both frontal lobes. There is restricted diffusion in a laminar pattern along the cortex of the medial parietal and frontal lobes on the left as well as the insular cortex. There is no evidence of mass effect or abnormal gadolinium enhancement. There are no previous MR studies available for comparison, compared to the CT of 01/13/2019 there are abnormal lucencies on the CT scan in the subcortical white matter and external capsule region on the left. IMPRESSION: Chronic ischemic microvascular changes. The possibility of early infarct in the distribution of the left anterior and middle cerebral arteries is suggested. Electronically signed by Jeffrey Ocampo 01/14/2019 9:53 AM The findings were discussed with Adam Lindo MD at 01/14/2019 9:53 AM.
[2019-01-14] MEDS: M.V.I.-12 10 ML, FOLIC ACID 1 MG, MAGNESIUM SULFATE 1 GM, THIAMINE 100 MG in NS 1,000 ML IV SCH (17:40)
[2019-01-14] MEDS ORDERED: KEPPRA 500 MG in NS 100 ML IV ONE (17:46)
--- NOTE | 2019-01-14 20:07 | PROGRESS NOTE ---
DATE: 01/14/2019 SUBJECTIVE: The patient is confused, not eating. She is in and out of the mental status changes, twitching of the right eye. Sometimes she can able to follow with verbal commands. She had mini seizures. Dr. Brower came by. She was in the MRI. EEG was done. REVIEW OF SYSTEMS: Not able to obtain. PHYSICAL EXAMINATION: Vital Signs: Temp is 98, pulse is 100. Vitals are stable. HEENT: Pupils equal, reactive to light. Neck: Supple. Chest: Some rhonchi. Heart: Heart sounds are regular. Abdomen: Belly is soft, nontender. Neurologic: Not able to assess full neurological exam. INVESTIGATIONS: White cell count 16, hematocrit 34.9. MRI reported chronic microvascular ischemic changes. 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 ASSESSMENT AND PLAN: 1. Probable CVA. Previous carotid Dopplers were negative with seizures. Follow up on EEG. Will consult with Dr. Brower. 2. History of alcohol and chronic pain. Continue on banana bags. 3. Nutrition. IV Clinimix. 4. Discontinue diet, n.p.o. 5. Seizures, increasing. IV Keppra 1000 IV q.12 and Ativan as needed. Questionable aspiration on IV Levaquin. 6. DVT prophylaxis, with Lovenox. 7. GI prophylaxis, with Protonix. Will check the labs in the morning. LEVEL OF DOCUMENTATION: 25 minutes. cc: Jae Lindo MD
[2019-01-14] MEDS: LEVAQUIN 500 MG/D5W 500 MG/100 ML IVPB IV SCH (21:04)
[2019-01-14] MEDS: PROTONIX IV SCH (21:04)
[2019-01-15] MEDS: ATIVAN IV PRN ×3 (02:06→18:42)
--- NOTE | 2019-01-15 04:11 | CONSULTATION ---
DATE OF CONSULTATION: 01/14/2019 HISTORY: Ms. Adams is 68 years old. She was admitted with reported increased falling, apparent resumption of ethanol intake, concern for ethanol withdrawal. By report, the family witnessed seizure the day before and the night before admission. I saw Ms. Adams in the hospital a few months ago with appearance of global encephalopathy following apparent seizure, concern then for misuse of medications, specifically benzodiazepine withdrawal as the likely explanation. There was left arm injury then. Her hospital course was unremarkable with gradual improvement. She was treated with levetiracetam during hospitalization. Close family friend at the bedside reports levetiracetam was continued after discharge. She reports patient lives alone and doubts patient was taking medications daily as directed. Friend does not know all of patient's medicines. Friend reports she obtained a pill organizer several days ago, and believes patient was likely taking medications more consistently in the last several days. This admission we do not have urine drug screen. WBC count was 16,000. There is mild hypocalcemia, and mild elevation of AST and alkaline phosphatase. She has been afebrile. Noncontrast CT was unremarkable. Brain MRI done this morning is reported to raise concern for recent left frontal and parietal infarction. On my view, I do not see definite ADC map signal to correspond to the DWI signal. PHYSICAL EXAMINATION: On exam, Ms. Adams is in the bed, awake and alert, attentive. She was slow to follow commands, but did follow commands consistently. She followed commands requiring right/left distinction and digit distinction. She used her arms purposefully. Limb tone seems symmetric. Visual field is difficult to dressage judge with poor attention, but she did count fingers in the right visual field consistently. Facial motility is symmetric. Tongue is midline. Extraocular movements are full. I did not test her gait. She was not attentive to usual sensory testing. Head is unremarkable. Neck is supple without meningismus. IMPRESSION: 1. Clinical findings now are mostly global encephalopathy, lethargy, no evidence of increased intracranial pressure, no definite focal findings. This may be to be related to ethanol withdrawal, benzodiazepine withdrawal, any intoxication, mild metabolic encephalopathy, likely combination of factors. 2. I have suspected in the past that she has a baseline cognitive impairment syndrome. I discussed that with family friend at the bedside. In that setting, any toxic/metabolic disturbance would likely produce significant encephalopathy. 3. Reported history of recent seizures. This may be related to ethanol withdrawal, benzodiazepine withdrawal, combination withdrawal. We will plan EEG, continue levetiracetam for now, and make further decisions based on her clinical course and EEG report. 4. MRI findings. I wonder if this might be a postictal finding or perhaps a subacute ischemic change. I do not see definite clinical evidence of acute ischemic stroke. 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 5. Reported gait difficulty. We can assess this with time, observation, and physical therapy. Seems likely ethanol would be contributing to her gait difficulty if report of recent ethanol use is accurate. Thanks for asking Neurology to see Ms. Adams. cc: MD Jae Reeves III, MD MTDD
[2019-01-15] MEDS: CLINIMIX E 4.25%-5% SOLUTION 1,000 ML IV SCH (04:57)
[2019-01-15] MEDS ORDERED: KEPPRA 1,000 MG in NS 100 ML IV SCH (06:00)
[2019-01-15] MEDS: PAXIL PO SCH (08:23)
[2019-01-15] MEDS: ZYRTEC PO SCH (08:24)
[2019-01-15] MEDS: REVIA PO SCH (08:24)
[2019-01-15] MEDS ORDERED: TYLENOL PR PRN (08:27)
[2019-01-15] MEDS: LOVENOX SUBQ SCH (09:51)
--- NOTE | 2019-01-15 09:53 | EEG REPORT ---
DATE: 01/14/2019 EEG NUMBER: [id number]. COMMENT: This is a digitally recorded EEG done portably in the [facility] on a 68-year-old patient with apparent recent seizures. FINDINGS: There is some head movement and muscle contraction artifact which does not hinder interpretation. Photic stimulation produced an increased head movement and muscle contraction and did not otherwise alter the EEG. Hyperventilation was not done. Waking background shows no sustained posterior dominant rhythm. There is polymorphic and rhythmic theta across the frontal and central regions with higher amplitude on the left. Drowsing occurred briefly. Stage 2 sleep was not recorded. No definite epileptiform discharge was identified. INTERPRETATION: Abnormal EEG because of generalized slowing and more prominent slowing across the left hemisphere. CORRELATION: This is indicative of a focal disturbance of electric cortical activity in the left hemisphere. The absence of epileptiform discharges on a single EEG does not exclude a clinical diagnosis of seizure. cc: MD Jae Reeves III, MD MTDD
[2019-01-15] MEDS: KEPPRA 1,000 MG in NS 100 ML IV SCH ×2 (10:51→17:52)
--- NOTE | 2019-01-15 11:01 | PROGRESS NOTE ---
DATE: 01/15/2019 SUBJECTIVE: Ms. Adams has had some focal seizures. Family reports no generalized seizure since yesterday. Family reports she was having better conversation last night than this morning. OBJECTIVE: This morning, I witnessed several brief (30-60 seconds) periods of clonic activity involving the right arm, sometimes involving the right face and leg more briefly. She appeared awake and alert throughout. She was able to answer a few simple questions and follow some simple commands. MRI showed changes at the left cortex as mentioned yesterday. Her EEG showed left hemisphere slowing, but no epileptiform discharge. We increased her levetiracetam dose to 1000 mg IV q. 12 hours yesterday, and she appears to be tolerating that. She presented with creatinine 2.5, but with hydration that has come down rapidly, 1.0 several days ago, 0.9 two days ago, so levetiracetam intoxication seems unlikely. With discussion among family present at the bedside today, family is not certain that she has used ethanol recently. We discussed possible explanations for recent seizures including ethanol withdrawal, benzodiazepine withdrawal, combinations of problems. She may have acute ischemic left hemisphere infarction associated with current focal seizure. We will need to consider followup imaging to be more certain. I will increase levetiracetam to 1000 mg q. 8 hours. She has p.r.n. lorazepam only 0.5 mg, and that has been effective. Further plans will depend on her clinical course. Thanks for asking Neurology to see Ms. Adams. cc: MD Jae Reeves III, MD MTDD
[2019-01-15] MEDS: M.V.I.-12 10 ML, FOLIC ACID 1 MG, MAGNESIUM SULFATE 1 GM, THIAMINE 100 MG in NS 1,000 ML IV SCH (17:00)
[2019-01-15] MEDS: PROTONIX IV SCH (21:04)
[2019-01-15] MEDS: LEVAQUIN 500 MG/D5W 500 MG/100 ML IVPB IV SCH (21:04)
--- NOTE | 2019-01-15 21:27 | PROGRESS NOTE ---
DATE: 01/15/2019 SUBJECTIVE: Appreciated Neurology input. The patient is obtunded, failed swallowing study. Fever 100 and multiple seizures. EEG showed left hemisphere slowing. PHYSICAL EXAMINATION: Vital Signs: Temp is 97, pulse 94, blood pressure is stable. Lungs: Bilateral air entry. Heart: Heart sounds are regular. Abdomen: Belly is soft, nontender. INVESTIGATIONS: None reported. ASSESSMENT AND PLAN: 1. Altered mental status due to withdrawal seizure. Increased IV Keppra 1000 q.8. 2. Fever. Tylenol suppository as needed. 3. Left wrist fracture, stable. 4. Aspiration bronchitis. Continue suctioning and continue on n.p.o. 5. IV banana bag and IV Clinimix. 6. DVT/GI prophylaxis as per order sheet. 7. We will do the chest x-ray, blood workup in the morning. Continue on n.p.o. 8. Consider PT/OT consult once her mental status and seizures controlled. Continue seizure precautions. LEVEL OF DOCUMENTATION: 25 minutes. cc: Jae Lindo MD
[2019-01-16] MEDS: CLINIMIX E 4.25%-5% SOLUTION 1,000 ML IV SCH ×2 (01:15→20:47)
[2019-01-16] MEDS: KEPPRA 1,000 MG in NS 100 ML IV SCH ×3 (02:47→18:42)
[2019-01-16 05:53] LABS: AGAP 13; BUN 23 mg/dL (8-22); CALCIUM 8.4 mg/dL (8.8-10.2); CHLORIDE 103 mmol/L (98-107); COSMO 278; CREATININE 0.8 mg/dL (0.5-0.9); ESTIMATED GFR > 60; GLUCOSE 102 mg/dL (70-104); POTASSIUM 2.9 mmol/L (3.5-5.1); SODIUM 137 mmol/L (136-145); TCO2 21 mmol/L (25-35)
[2019-01-16] MEDS: ATIVAN IV PRN (05:53)
[2019-01-16 06:34] LABS: BASO# 0.03 X1000 (0.0-0.2); BASO% 0.2 % (0.0-0.8); EOS# 0.06 X1000 (0.0-0.7); EOS% 0.4 % (0.0-10.0); HEMATOCRIT 33.4 % (37.0-47.0); HEMOGLOBIN 11.1 g/dL (12.0-16.0); IMM GRAN# 0.04 X1000 (0.0-0.04); IMM GRAN% 0.2 % (0.0-0.5); LYMPH# 0.78 X1000 (1.2-3.4); LYMPH% 4.7 % (20.5-51.1); MCH 31.4 PG (27-31); MCHC 33.2 g/dL (33-37); MCV 94.6 FL (81-99); MONO# 0.64 X1000 (0.11-0.59); MONO% 3.8 % (1.7-9.3); MPV 10.4 FL (7.4-10.4); NEUT# 15.19 X1000 (1.4-6.5); NEUT% 90.7 % (42.2-75.2); PLT 251 X1000 (130-400); RBC 3.53 XMIL (4.2-5.4); RDW 13.3 % (11.5-14.5); WBC 16.74 X1000 (4.8-10.8)
--- NOTE | 2019-01-16 07:03 | Diag Imaging Result Doc PS360 ---
EXAM: CHEST-1 VIEW HISTORY: SOB TECHNIQUE: Portable chest single view COMPARISON: 01/13/2019 FINDINGS: Poor inspiratory effort. No cardiomegaly. There is a small left pleural effusion. Mild vascular distention. No consolidation. IMPRESSION: Mild interval worsening. Electronically signed by Tavares Mena 01/16/2019 7:01 AM
[2019-01-16 07:33] LABS: BANDS 1 % (0-1); LYMPHS 7 % (21-51); MONO 4 % (1-9); SEGS 88 % (42-75)
[2019-01-16] MEDS: ZYRTEC PO SCH (08:59)
[2019-01-16] MEDS: POTASSIUM CHLORIDE 40 MEQ in 1/2 NS 250 ML IV SCH ×3 (08:59→15:15)
[2019-01-16] MEDS: PAXIL PO SCH (08:59)
[2019-01-16] MEDS: REVIA PO SCH (08:59)
[2019-01-16] MEDS: LOVENOX SUBQ SCH (10:07)
[2019-01-16] MEDS: DUONEB (A & A) INH PRN ×3 (10:29→21:09)
--- NOTE | 2019-01-16 11:32 | PROGRESS NOTE ---
DATE: 01/16/2019 SUBJECTIVE: Ms. Adams has not had clinically recognized focal or generalized seizure in recent hours. Levetiracetam dose is 1000 mg IV q.8 hours and she appears to be tolerating that. She has had lorazepam 0.5 mg p.r.n. with last dose about 6 hours before my visit. PHYSICAL EXAMINATION: On exam now, she is more alert than yesterday, more spontaneous, answering questions more briskly, following simple commands more consistently. She used her right hand purposefully. I could not see definite focal motor deficit in the right limbs on brief testing. She did well on bedside language testing of naming objects, naming parts of objects, raising fingers. She is not completely oriented. IMPRESSION AND PLAN: Focal seizure disorder, improved control with current management. We can switch her levetiracetam dose to p.o. when she is swallowing consistently. We can check serum levetiracetam level electively, not urgent. We might repeat her EEG electively. The MRI earlier this admission showed some changes in the left parietal cortex. I think it would be reasonable to plan to repeat the MRI to establish a more definite baseline brain appearance but repeat MRI is not urgent. Thanks for asking Neurology to see Ms. Adams. cc: MD Jae Reeves III, MD MTDD
[2019-01-16] MEDS: M.V.I.-12 10 ML, FOLIC ACID 1 MG, MAGNESIUM SULFATE 1 GM, THIAMINE 100 MG in NS 1,000 ML IV SCH (16:50)
--- NOTE | 2019-01-16 20:30 | PROGRESS NOTE ---
DATE: 01/16/2019 SUBJECTIVE: I have seen the patient twice this afternoon. Patient watching TV with glasses. Able to move all the extremities. Postictal state is improving, able to converse verbally. She is still gurgling. EXAMINATION: Vital Signs: Temp is 102.8, pulse 102, blood pressure is 143/38. HEENT: Within normal limits. Lungs: Rhonchi. Heart: Heart sounds are regular. Abdomen: Belly is soft, nontender. Neurologic: No deficits noted. INVESTIGATIONS: CBC: White cell count 16, hematocrit 33, platelets 251,000. SMA-7: Sodium 137, potassium 2.9, BUN 23, creatinine 0.9. Urine cultures are negative. Chest x-ray: Mild interval worsening. Poor inspiratory film. ASSESSMENT AND PLAN: 1. Postictal status withdrawal seizures. 2. Aspiration bronchitis. 3. Hypokalemia. PLAN: 1. IV Clinimix. 2. Banana bag. 3. IV Keppra as per Dr. Brower. 4. Continue n.p.o. 5. P.r.n. suctioning. 6. Continue IV antibiotics and Tylenol for fever. We will repeat the blood workup on a daily basis for the next few days. LEVEL OF DOCUMENTATION: 25 minutes. cc: Jae Lindo MD
[2019-01-16] MEDS: PROTONIX IV SCH (20:46)
[2019-01-16] MEDS: LEVAQUIN 500 MG/D5W 500 MG/100 ML IVPB IV SCH (20:47)
[2019-01-17] MEDS: KEPPRA 1,000 MG in NS 100 ML IV SCH ×3 (02:05→16:26)
[2019-01-17] MEDS: DUONEB (A & A) INH PRN ×2 (03:10→09:19)
[2019-01-17 05:37] LABS: BASO# 0.03 X1000 (0.0-0.2); BASO% 0.4 % (0.0-0.8); EOS# 0.07 X1000 (0.0-0.7); EOS% 0.9 % (0.0-10.0); HEMATOCRIT 37.5 % (37.0-47.0); HEMOGLOBIN 12.7 g/dL (12.0-16.0); IMM GRAN# 0.04 X1000 (0.0-0.04); IMM GRAN% 0.5 % (0.0-0.5); LYMPH# 0.65 X1000 (1.2-3.4); LYMPH% 8.4 % (20.5-51.1); MCH 32.7 PG (27-31); MCHC 33.9 g/dL (33-37); MCV 96.6 FL (81-99); MONO# 0.37 X1000 (0.11-0.59); MONO% 4.8 % (1.7-9.3); NEUT# 6.54 X1000 (1.4-6.5); PLT 204 X1000 (130-400); RBC 3.88 XMIL (4.2-5.4); RDW 13.4 % (11.5-14.5)
[2019-01-17 05:51] LABS: AGAP 10; BUN 21 mg/dL (8-22); CALCIUM 8.3 mg/dL (8.8-10.2); CHLORIDE 103 mmol/L (98-107); COSMO 277; CREATININE 0.7 mg/dL (0.5-0.9); ESTIMATED GFR > 60; GLUCOSE 104 mg/dL (70-104); POTASSIUM 3.3 mmol/L (3.5-5.1); SODIUM 137 mmol/L (136-145); TCO2 24 mmol/L (25-35)
--- NOTE | 2019-01-17 07:23 | Diag Imaging Result Doc PS360 ---
EXAM: CHEST-1 VIEW 01/17/2019 HISTORY: SOB TECHNIQUE: AP portable at 0605 COMMENT: There is ill-defined opacity in the left base obscuring the hemidiaphragm. This is slightly worse than on the previous study of 01/16/2019. The inspiration is suboptimal. IMPRESSION: Left lower lobe pneumonia. Electronically signed by Jeffrey Ocampo 01/17/2019 7:21 AM
[2019-01-17] MEDS: POTASSIUM CHLORIDE 20 MEQ/SWI 20 MEQ/100 ML IVPB IV SCH ×2 (08:25→11:23)
[2019-01-17] MEDS: PAXIL PO SCH (09:35)
[2019-01-17] MEDS: ZYRTEC PO SCH (09:35)
[2019-01-17] MEDS: REVIA PO SCH (09:36)
--- NOTE | 2019-01-17 10:13 | PROGRESS NOTE ---
DATE: 01/17/2019 Ms. Adams is awake and alert right now, conversing appropriately with me, seeming a little brighter than yesterday. There was some spontaneous right pectoralis muscle twitch, but no right arm movement and no facial or leg twitch. She has not had a clinically recognized seizure. Levetiracetam is 1000 mg IV q.8 h. now. She does not appear to be sedated with that dose. She has lorazepam 0.5 mg p.r.n. with no dose in well over 24 hours now. I think we can follow current clinical situation. If she has more definite seizure or if she has altered alertness, we can consider increasing levetiracetam or adding a second seizure drug. We might need to repeat EEG if she has twitching with uncertain explanation. I will order levetiracetam serum level this morning. Thanks for asking Neurology to see Ms. Adams. cc: MD Jae Reeves III, MD MTDD
[2019-01-17] MEDS: LOVENOX SUBQ SCH (10:25)
[2019-01-17] MEDS: CLINIMIX E 4.25%-5% SOLUTION 1,000 ML IV SCH (16:26)
[2019-01-17] MEDS: M.V.I.-12 10 ML, FOLIC ACID 1 MG, MAGNESIUM SULFATE 1 GM, THIAMINE 100 MG in NS 1,000 ML IV SCH (16:27)
[2019-01-17] MEDS: LEVAQUIN 500 MG/D5W 500 MG/100 ML IVPB IV SCH (20:54)
[2019-01-17] MEDS: PROTONIX IV SCH (20:54)
[2019-01-17] MEDS ORDERED: VITAMIN D PO SCH (21:00)
--- NOTE | 2019-01-17 21:13 | PROGRESS NOTE ---
DATE: 01/17/2019 SUBJECTIVE: The patient is more bright, had a glasses now. More alert, conversing better, able to move all the extremities. Still n.p.o. She has been running a low-grade fever. EXAMINATION: Vital Signs: Temp is 98, blood pressure 136/77. 3 L nasal cannula. Some twitching noted on the right side. Chest: rhonchi anteriorly . Heart: Heart sounds are regular. Abdomen: Belly is soft, nontender. Barnard is placed. Able to move all the extremities. IMAGING: Chest x-ray is left lower lobe infiltrate. LABS: CBC: White cell count 7.7, hematocrit 37.5, platelets 204,000. SMA-7: Sodium 137, potassium 3.3. ASSESSMENT AND PLAN: 1. Altered mental status due to metabolic encephalopathy with underlying seizure due to withdrawals. 2. Aspiration pneumonia. 3. Hypokalemia. 4. Plan of care is continue IV antibiotics, oxygen. We will get speech evaluation. Continue on n.p.o. Currently, she is getting IV banana bag and Clinimix. DVT/GI prophylaxis as per order sheet. 5. Seizures, as per Dr. Brower. Currently on IV Keppra 1000 mg q.8 and check the levels, and replace the potassium and repeat the chest x-ray and blood tests in the morning. LEVEL OF DOCUMENTATION: 35 minutes. cc: Jae Lindo MD MTDD
[2019-01-18] MEDS: KEPPRA 1,000 MG in NS 100 ML IV SCH ×3 (00:42→16:19)
[2019-01-18 05:48] LABS: BASO# 0.05 X1000 (0.0-0.2); BASO% 0.7 % (0.0-0.8); EOS# 0.42 X1000 (0.0-0.7); EOS% 5.8 % (0.0-10.0); HEMATOCRIT 31.7 % (37.0-47.0); HEMOGLOBIN 10.4 g/dL (12.0-16.0); LYMPH# 1.07 X1000 (1.2-3.4); LYMPH% 14.7 % (20.5-51.1); MCH 31.5 PG (27-31); MCHC 32.8 g/dL (33-37); MCV 96.1 FL (81-99); MONO# 0.63 X1000 (0.11-0.59); MONO% 8.6 % (1.7-9.3); NEUT# 5.12 X1000 (1.4-6.5); NEUT% 70.2 % (42.2-75.2); PLT 193 X1000 (130-400); RDW 12.8 % (11.5-14.5); WBC 7.29 X1000 (4.8-10.8)
[2019-01-18 06:08] LABS: AGAP 9; BUN 19 mg/dL (8-22); CHLORIDE 101 mmol/L (98-107); COSMO 269; CREATININE 0.6 mg/dL (0.5-0.9); ESTIMATED GFR > 60; GLUCOSE 101 mg/dL (70-104); POTASSIUM 3.2 mmol/L (3.5-5.1); SODIUM 133 mmol/L (136-145); TCO2 23 mmol/L (25-35)
--- NOTE | 2019-01-18 07:54 | Diag Imaging Result Doc PS360 ---
EXAM: CHEST-1 VIEW INDICATION: SOB TECHNIQUE: One view COMPARISON: 01/17/2019 FINDINGS: The left basilar infiltrate has improved slightly during the interval. No new consolidation is identified. Cardiac silhouette is stable. IMPRESSION: Slight improvement of left basilar infiltrate. Electronically signed by Gavin Berman 01/18/2019 7:52 AM
--- NOTE | 2019-01-18 08:30 | PROGRESS NOTE ---
DATE: 01/18/2019 SUBJECTIVE: Ms. Adams has not had clinical evidence of seizure. OBJECTIVE: She appeared to be asleep as I approached her bedside. She was easily waked and remained alert and attentive. She followed simple commands. She followed commands requiring right/left distinction and digit distinction. She named objects and parts of objects. Speech is soft, but not dysarthric. She has good facial motility. I can overcome the right arm at the deltoid grading 4/5. She did well on [id number] testing. Levetiracetam dose is 3000 mg daily. We have levetiracetam level pending. She has good renal function and she does not appear to be sedated with this dose. I do not have any new suggestion today. If she has more focal twitching or altered awareness, we might repeat her EEG and adjust levetiracetam dose or add a second seizure medicine. Right now, she appears to be stable. Thanks for asking Neurology to see Ms. Adams. cc: MD Jae Reeves III, MD MTDD
[2019-01-18] MEDS: PAXIL PO SCH (08:41)
[2019-01-18] MEDS: REVIA PO SCH (08:42)
[2019-01-18] MEDS: LOVENOX SUBQ SCH ×2 (08:42→09:47)
[2019-01-18] MEDS: ZYRTEC PO SCH (08:42)
[2019-01-18] MEDS: CLINIMIX E 4.25%-5% SOLUTION 1,000 ML IV SCH (12:17)
[2019-01-18] MEDS: DUONEB (A & A) INH PRN (15:31)
[2019-01-18] MEDS: M.V.I.-12 10 ML, FOLIC ACID 1 MG, MAGNESIUM SULFATE 1 GM, THIAMINE 100 MG in NS 1,000 ML IV SCH (16:45)
--- NOTE | 2019-01-18 17:03 | PROGRESS NOTE ---
DATE: 01/18/2019 SUBJECTIVE: The patient is getting better. Passed the swallowing studies. Eating soft diet and more awake. No seizures activity and able to move all the extremities. EXAM: Temperature is 98 degrees, pulse 86, blood pressure 130/73.HEENT: Within normal limits. Decreased rhonchi in the chest anteriorly. Heart: Sounds are distant. Belly: Is soft, nontender. Neurologic: Status is improving. INVESTIGATIONS: CBC. White cell count 7.2, hematocrit 32, platelets 193,000. SMA 7, sodium 133, potassium 3.2. Keppra levels 51. ASSESSMENT AND PLAN: 1. Altered mental status, postictal, improving. 2. Acute ischemic encephalopathy better. 3. Aspiration pneumonia on the chest x-ray improving. Continue IV Levaquin. 4. Hypokalemia. Replace the potassium. Continue on Clinimix and banana bag. 5. Deep venous thrombosis prophylaxis with Lovenox. 6. Left wrist fracture stable and continue on withdrawals on naltrexone and continue IV Protonix and depression on Paxil and slowly swap the medicine by mouth and hopefully will want to continue to monitor her progress over the weekend and discharge to the rehab next week. Living will has been discussed, family still working on. LEVEL OF DOCUMENTATION: 25 minutes. cc: Jae Lindo MD
[2019-01-18] MEDS: PROTONIX IV SCH (21:59)
[2019-01-18] MEDS: LEVAQUIN 500 MG/D5W 500 MG/100 ML IVPB IV SCH (21:59)
[2019-01-19] MEDS: KEPPRA 1,000 MG in NS 100 ML IV SCH ×3 (01:20→16:00)
[2019-01-19] MEDS: CLINIMIX E 4.25%-5% SOLUTION 1,000 ML IV SCH ×2 (05:28→23:20)
[2019-01-19 06:01] LABS: AGAP 8; BUN 16 mg/dL (8-22); CALCIUM 7.4 mg/dL (8.8-10.2); CHLORIDE 104 mmol/L (98-107); COSMO 274; CREATININE 0.6 mg/dL (0.5-0.9); ESTIMATED GFR > 60; GLUCOSE 106 mg/dL (70-104); POTASSIUM 3.3 mmol/L (3.5-5.1); SODIUM 136 mmol/L (136-145); TCO2 24 mmol/L (25-35)
--- NOTE | 2019-01-19 07:04 | Diag Imaging Result Doc PS360 ---
EXAM: CHEST-1 VIEW 01/19/2019 HISTORY: SOB TECHNIQUE: AP portable at 0617 COMMENT: There is ill-defined opacity in the left lower lobe which is slightly worse than on 01/18/2019. Otherwise there has been no significant change. IMPRESSION: Worsened atelectasis and/or pneumonia left lower lobe. Electronically signed by Jeffrey Ocampo 01/19/2019 7:02 AM
[2019-01-19] MEDS: ZYRTEC PO SCH (08:23)
[2019-01-19] MEDS: PAXIL PO SCH (08:23)
[2019-01-19] MEDS: REVIA PO SCH (08:23)
[2019-01-19] MEDS: LOVENOX SUBQ SCH (12:24)
[2019-01-19] MEDS ORDERED: KLOR-CON PO ONE (12:29)
--- NOTE | 2019-01-19 13:14 | PROGRESS NOTE ---
DATE: 01/19/2019 SUBJECTIVE: Patient without any seizure activity. She feels well. Complains of some mild "aches and pains." OBJECTIVE: Vital Signs: Afebrile, pulse 87, respirations 18, blood pressure 136/76, O2 saturation 100% on 2 to 3 L. CV: RRR. Lungs: Minimal rhonchi left lung base. Good air movement. Abdomen: Nontender, nondistended. Extremities: No calf tenderness, cords or edema. Neurologic: Cranial nerves are intact. She moves all extremities well. Sodium is 136, potassium 3.3, chloride 104, CO2 24, BUN 16, creatinine 0.6, calcium 7.4. White count yesterday 7.2, hemoglobin 10.4, platelets 193,000. ASSESSMENT: 1. Seizure. 2. Mildly abnormal MRI, rule out CVA. 3. Alcohol abuse. 4. Possible left pneumonia improving clinically. 5. Depression. 6. Hypercholesterolemia. 7. GERD. 8. History of narcotic abuse. 9. Hypokalemia. PLAN: Continue present treatments to include Levaquin. She is on Keppra IV per Dr. Brower. She is on multivitamin. She is eating well. We will replete potassium. We will add nebulizer treatments on a scheduled basis at this time and encouraged incentive spirometry. cc: MD Jae Hale MD
[2019-01-19] MEDS: DUONEB (A & A) INH SCH ×2 (15:18→20:10)
[2019-01-19] MEDS: M.V.I.-12 10 ML, FOLIC ACID 1 MG, MAGNESIUM SULFATE 1 GM, THIAMINE 100 MG in NS 1,000 ML IV SCH (16:01)
[2019-01-19] MEDS: PROTONIX IV SCH (21:23)
[2019-01-19] MEDS: LEVAQUIN 500 MG/D5W 500 MG/100 ML IVPB IV SCH (21:23)
[2019-01-20] MEDS: KEPPRA 1,000 MG in NS 100 ML IV SCH ×3 (00:25→16:39)
[2019-01-20] MEDS: DUONEB (A & A) INH SCH ×4 (03:07→19:49)
[2019-01-20] MEDS: CLINIMIX E 4.25%-5% SOLUTION 1,000 ML IV SCH ×2 (05:41→15:23)
[2019-01-20 05:46] LABS: AGAP 9; BUN 13 mg/dL (8-22); CALCIUM 8.5 mg/dL (8.8-10.2); CHLORIDE 107 mmol/L (98-107); COSMO 278; CREATININE 0.6 mg/dL (0.5-0.9); ESTIMATED GFR > 60; GLUCOSE 100 mg/dL (70-104); POTASSIUM 3.6 mmol/L (3.5-5.1); SODIUM 139 mmol/L (136-145); TCO2 23 mmol/L (25-35)
[2019-01-20] MEDS: REVIA PO SCH (08:52)
[2019-01-20] MEDS: ZYRTEC PO SCH (08:52)
[2019-01-20] MEDS: LOVENOX SUBQ SCH ×2 (08:53→09:44)
[2019-01-20] MEDS: PAXIL PO SCH (08:53)
--- NOTE | 2019-01-20 13:23 | PROGRESS NOTE ---
DATE: 01/20/2019 SUBJECTIVE: Patient without specific complaints. OBJECTIVE: Vitals: Afebrile, pulse 90, respirations 18, blood pressure 116/64, O2 saturation on 3 L is 100%. CARDIOVASCULAR: Regular rhythm and rate. Lungs: Clear. Abdomen: Soft, nontender, nondistended. Extremities: No calf tenderness, cords or edema. Neurologic: Nonfocal. LABORATORIES: Show potassium up to 3.6 from 3.3 yesterday with repletion. Sodium 139, BUN 13, creatinine 0.6. ASSESSMENT: 1. Seizure. 2. Mildly abnormal MRI, rule out light cerebrovascular accident without significant abnormality on exam. 3. History of alcohol abuse and narcotic abuse. 4. Possible left pneumonia. 5. Depression. 6. Hypercholesterolemia. 7. Gastroesophageal reflux disease. 8. Hypokalemia, resolved with repletion. PLAN: 1. Continue Levaquin, multivitamin, Keppra per Dr. Brower. 2. Continue current medications. cc: MD Jae Hale MD
[2019-01-20] MEDS: M.V.I.-12 10 ML, FOLIC ACID 1 MG, MAGNESIUM SULFATE 1 GM, THIAMINE 100 MG in NS 1,000 ML IV SCH (16:39)
[2019-01-20] MEDS: LEVAQUIN 500 MG/D5W 500 MG/100 ML IVPB IV SCH (20:58)
[2019-01-20] MEDS: PROTONIX IV SCH (20:58)
[2019-01-21] MEDS: KEPPRA 1,000 MG in NS 100 ML IV SCH (00:43)
[2019-01-21] MEDS: DUONEB (A & A) INH SCH ×4 (05:07→21:44)
[2019-01-21] MEDS: KEPPRA PO SCH ×2 (09:23→20:33)
[2019-01-21] MEDS: PAXIL PO SCH (09:24)
[2019-01-21] MEDS: REVIA PO SCH (09:24)
[2019-01-21] MEDS: ZYRTEC PO SCH (09:24)
[2019-01-21] MEDS: LOVENOX SUBQ SCH (09:24)
[2019-01-21] MEDS: CLINIMIX E 4.25%-5% SOLUTION 1,000 ML IV SCH (11:10)
[2019-01-21] MEDS: M.V.I.-12 10 ML, FOLIC ACID 1 MG, MAGNESIUM SULFATE 1 GM, THIAMINE 100 MG in NS 1,000 ML IV SCH (16:29)
--- NOTE | 2019-01-21 21:30 | PROGRESS NOTE ---
DATE: 01/21/2019 SUBJECTIVE: The patient is much better, mentally alert. No seizure activity. No focal symptoms or weakness. OBJECTIVE: Vital Signs: Low-grade fever. Vitals are stable. HEENT: Within normal limits. Neck: Supple. Lungs: Decreased rhonchi. Heart: Sounds are regular. Abdomen: Belly is soft, nontender. Neurologic: No obvious deficits. LABS: SMA 7 was normal. ASSESSMENT AND PLAN: 1. Altered mental status due to seizure, improving. Change to the Keppra 1000 by mouth twice daily. 2. Deep vein thrombosis prophylaxis with Lovenox. Continue on banana bag and intravenous Clinimix, and advance the diet. 3. Discontinue Barnard. 4. Aspiration pneumonia, on Levaquin, and out of the bed with physical therapy today and plan for rehabilitation placement. 5. Left wrist fracture, stable LEVEL OF DOCUMENTATION: 25 minutes. cc: Jae Lindo MD
[2019-01-21] MEDS: PROTONIX IV SCH (21:35)
[2019-01-21] MEDS: LEVAQUIN 500 MG/D5W 500 MG/100 ML IVPB IV SCH (21:35)
[2019-01-22] MEDS: DUONEB (A & A) INH SCH ×3 (03:35→15:22)
[2019-01-22 08:09] VITALS: BP 121/71
[2019-01-22] MEDS: PAXIL PO SCH (08:39)
[2019-01-22] MEDS: ZYRTEC PO SCH (08:39)
[2019-01-22] MEDS: KEPPRA PO SCH (08:39)
[2019-01-22] MEDS: REVIA PO SCH (08:39)
[2019-01-22] MEDS: CLINIMIX E 4.25%-5% SOLUTION 1,000 ML IV SCH (09:03)
--- NOTE | 2019-01-22 09:50 | DISCHARGE SUMMARY ---
ADMISSION DATE: 01/12/2019 DISCHARGE DATE: 01/22/2019 DISCHARGING DIAGNOSIS: Altered mental status due to metabolic encephalopathy due to seizures from withdrawal from chronic pain and alcohol. SECONDARY DIAGNOSES: 1. Aspiration pneumonia. 2. Left Colles fracture, stable. 3. Depression. 4. Seizures due to withdrawals. 5. Hemorrhoids. 6. Hiatal hernia. 7. Hyperlipidemia. 8. Nicotine dependency. 9. Osteoarthritis. 10. Hypokalemia. CONSULTS: Dr. Brower. PROCEDURES: 1. CT head x2. Chronic microvascular ischemic changes. 2. Brain MRI. Chronic ischemic microvascular changes. 3. EEG. Abnormal EEG. Generalized slowing more prominent on the left hemisphere. BRIEF HISTORY: Please see the H and P that was done on 01/10/2019. In brief she is a 68-year-old white female, has been using chronic narcotics and alcohol and recently discharged from the hospital, had withdrawal seizures and she went to rehab and came back home and she started drinking again. She was readmitted to the hospital with altered mental status, low blood pressure, dehydration. HOSPITAL COURSE: She was given IV fluids for dehydration. In the meantime, she is completely altered mental status just due to withdrawal from alcohol and chronic pain with multiple seizures. The patient was transferred to the step-down unit [facility]. During this time, the patient was unresponsive and requiring full attention. The patient was started on IV Keppra 1000 mg q.8. Neurology consult was obtained by Dr. Brower. He agreed the plan of care, increasing the Keppra, aspiration precautions and Barnard was placed. The patient was given IV Clinimix, banana bag. Electrolytes were replaced. She developed aspiration pneumonia in the left lung for which the patient was given IV antibiotics and incentive spirometry, bronchodilators. She was not able to move all the extremities. patient had 2 CTs and MRI did not show any acute brain injury. She came back to the baseline is able to converse, follow with verbal commands. Family was at bedside. They want to send her for rehab. Followup on urine cultures were negative. Labs as follows at the time of discharge CBC: White cell count 7.2, hematocrit 31.7, platelets 193,000. SMA 7: Sodium 139, potassium 3.6, chloride 107 BUN 13, creatinine 0.6. Keppra levels 51. The patient has been discharged to the rehab with this following instructions. DISCHARGE INSTRUCTIONS: 1. Pneumococcal 13 vaccine was given 12/04/2018. 2. Simvastatin 40 daily. 3. Paxil 20 daily. 4. Prilosec 40 daily. 5. Vitamin D 89645 units once a week. 6. Potassium 20 mEq daily. 7. Icar-C Plus 1 tablet daily. 8. Naltrexone 50 daily. 9. Cetirizine 10 mg daily. 10. Keppra 1000 mg p.o. b.i.d. 11. Sulindac 150 daily for pain as needed. 12. Zofran as needed for nausea. 13. Out of the bed with physical therapy and follow up in my office in 2 weeks. cc: MD Jae Reeves III, MD
--- NOTE | 2019-01-22 13:46 | PROGRESS NOTE ---
DATE: 01/22/2019 Ms. Adams has not had clinically recognized seizure. She has continued awake and alert. Her mental status has continued to improve. She may be at or near her baseline now. I believe that plans have been made for her discharge. I agree with those plans. I will make arrangements to follow her in the office to check on the levetiracetam dose. She appears to be tolerating her oral dose 1000 mg b.i.d. now. Thanks for asking Neurology to see Ms. Adams. cc: MD Jae Reeves III, MD
== END 2019-01-22 16:09 | DRG 896 ==
LOC: DIRADM → 3N 14:24 → 3S 01-12 17:57
PROVIDERS: ADMIT Internal Medicine; ATTEND Internal Medicine
CPT/HCPCS: 70450; 70553; 71010; 71045; 80048; 80053; 80177; 80299; 81001; 82491; 83735; 85025; 85610; 87088; 92526; 94640; 94761; 94799; 95816; 97110; 97162; 97167; 97530; A9270; A9579; C9113; J1650; J1940; J1953; J1956; J2060; J2405; J3411; J3475; J3480; J7030; S0164

== ENCOUNTER 2019-12-16 14:09 | Inpatient (IN) ==
--- NOTE | 2019-12-16 18:00 | Diag Imaging Result Doc PS360 ---
CT HEAD W/O CONTRAST - 12/16/2019 INDICATION: falls/stroke-like symptoms COMPARISON: 01/13/2019 FINDINGS: There is some stable patchy periventricular white matter chronic microvascular ischemia, mainly in the frontal lobes. The ventricles and sulci are normal in size and contour. No intracranial mass or hemorrhage. The skull is intact. The sinuses mastoids and middle ears are clear. IMPRESSION: No acute disease or change from prior. This exam was performed using automated exposure control, adjustment of mA or kV according to patient size, and/or use of iterative reconstruction technique Electronically signed by Reji Thao 12/16/2019 5:58 PM
--- NOTE | 2019-12-16 18:10 | Diag Imaging Result Doc PS360 ---
SHOULDER LEFT - 12/16/2019 INDICATION: fall TECHNIQUE: Two views COMPARISON: None FINDINGS: There is essentially nondisplaced fracture through the greater tuberosity of the humeral head. There is probably also nondisplaced fracture through the surgical neck. No dislocation. IMPRESSION: Nondisplaced fractures of the left humeral head. Electronically signed by Reji Thao 12/16/2019 6:08 PM
--- NOTE | 2019-12-16 18:11 | Diag Imaging Result Doc PS360 ---
WRIST COMPLETE RIGHT - 12/16/2019 INDICATION: fall TECHNIQUE: Three views COMPARISON: None FINDINGS: There is impacted distal radius fracture. No angulation. No visible ulnar styloid fracture. IMPRESSION: Impacted Colles' fracture. Electronically signed by Reji Thao 12/16/2019 6:08 PM
--- NOTE | 2019-12-16 18:36 | PROVIDER DOCUMENTATION ---
HPI-General Adult - General Chief Complaint: Stroke-Like Symptoms Stated Complaint: Fall/shoulder pain Time Seen by Provider: 12/16/19 18:19 Source: patient, family Allergies/Adverse Reactions: Patient Allergies Allergy/AdvReac Type Severity Reaction Status Date / Time Penicillins Allergy Unknown Verified 04/30/16 16:02 Sulfa (Sulfonamide Allergy Unknown Verified 04/30/16 16:02 Antibiotics) Home Medications: Home Medication List Medication Instructions Recorded Confirmed Last Taken Type Omeprazole 40 mg PO DAILY 04/30/16 01/10/19 Unknown History Paroxetine HCl [Paxil] 20 mg PO DAILY 04/30/16 01/10/19 04/29/16 09:00 History 20 mg Simvastatin 40 mg PO DAILY 04/30/16 01/10/19 04/29/16 09:00 History 40 mg Ergocalciferol (Vitamin D2) 50,000 unit PO Q7D 11/24/18 01/10/19 Unknown History [Vitamin D] Iron Carbonyl/Vit C/Vit B12/FA 1 tab PO DAILY 11/24/18 11/24/18 Unknown History [Icar-C Plus] Potassium Chloride [Klor-Con M20] 1 tab PO DAILY 11/24/18 01/10/19 Unknown History Cetirizine [Zyrtec] 10 mg PO DAILY tablet 12/04/18 01/10/19 Unknown Rx Naltrexone [Revia] 50 mg PO DAILY tablet 12/04/18 01/10/19 Unknown Rx Sulindac 150 mg PO DAILY #30 tablet 12/04/18 01/10/19 Unknown Rx Ondansetron HCl [Zofran] 4 mg PO TID PRN 01/10/19 01/10/19 Unknown History Levetiracetam [Keppra] 1,000 mg PO BID #60 tab 01/22/19 Unknown Rx - History of Present Illness -Gen Adult Nature of Presenting Problems: 69yo female presents with CC of recurrent falls and shoulder pain. The patient reports that yesterday morning she fell going up some steps. The patient does not believe her fall was provoked and after the fall the patient noted some persistent lower extremity weakness and family noted lefts sided facial drooping in the evening and some abnormal speech. The patient currently denies any chest pain, shortness of breath, fever, or blurry vision. The pt does have hx of seizures. Review of Systems - Adult - REVIEW OF SYSTEMS - ADULT Constitutional: reports: no symptoms reported. denies: fever Eyes: reports: no symptoms reported. denies: blurred vision Ears, Nose, Mouth & Throat: reports: no symptoms reported. denies: throat pain Cardiovascular: reports: no symptoms reported. denies: chest pain Respiratory: reports: no symptoms reported. denies: shortness of breath Gastrointestinal: reports: no symptoms reported. denies: abdominal pain Genitourinary: reports: no symptoms reported. denies: flank pain Musculoskeletal: reports: joint pain (shoulder wrist) Integumentary: reports: no symptoms reported Neurological: reports: see HPI, loss of balance, slurred speech, other (weakness). denies: headache/migraines Psychiatric: reports: no symptoms reported Endocrine: reports: no symptoms reported Hematologic/Lymphatic: reports: no symptoms reported, other (no bleeding) Allergic/Immunologic: reports: no symptoms reported Past History - Adult - PAST MEDICAL HISTORY-ADULT Review of Records: reports: Old Records Reviewed Major Childhood Illnesses: reports: denies history Cardiovascular: reports: HTN Respiratory: reports: denies history Gastrointestinal: reports: denies history Obstetrical/Gynecological: reports: denies history Genitourinary: reports: denies history Musculoskeletal: reports: denies history Neurological: reports: denies history Endocrine/Immune: reports: denies history Other Conditions: reports: denies history - PRIOR SURGERIES/PROCEDURES Surgical/Procedure History: reports: none - IMMUNIZATION STATUS Childhood Immunizations: See Nurse Assessment Flu Vaccine: See Nurse Assessment - FAMILY HISTORY Family History: reviewed, not pertinent Physical Exam-General - PHYSICAL EXAM-ADULT Initial Vital Signs Reviewed: Yes - CONSTITUTIONAL General Appearance: appears well, alert, no apparent distress - EYES Eyes: PERRL/EOMI. negative: conjuctival exudate, photophobia, scleral icterus - HEAD, EARS, NOSE, MOUTH & THROAT HENMT: normocephalic/atraumatic, moist mucous membranes, pharynx normal - NECK Neck: non-tender, supple - RESPIRATORY Respiratory: normal breath sounds, no respiratory distress - CARDIOVASCULAR Cardiovascular: no edema, tachycardia - GASTROINTESTINAL (ABDOMEN) Abdominal Exam: non tender, soft - MUSCULOSKELETAL Extremity: normal range of motion, non-tender, pelvis stable. negative: deformity - SKIN Integumentary: normal color, warm/dry. 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 negative: facial droop, focal weakness, sensory deficit - PSYCHIATRIC Psych/Mental Status: normal mood/affect, normal thought content, normal thought process Progress - PLAN OF CARE/RESULTS Progress/Plan/Lab Results: Vital Signs - 8 hr 12/16/19 14:45 Temperature 98.2 F Pulse Rate 100 H Respiratory Rate 16 Blood Pressure 189/99 O2 Sat by Pulse Oximetry 95 Orders Category Date Time Status NEWS Score 2-4:Order NEWS Lactate Series NOW Care 12/16/19 14:[address] HEAD W/O CONTRAST [CT] Stat Exams 12/16/19 16:54 Completed SHOULDER 1 VIEW LEFT [RAD] Stat Exams 12/16/19 17:28 Completed WRIST COMPLETE RIGHT [RAD] Stat Exams 12/16/19 17:28 Completed LACTATE, PLASMA [CHEM] Q3H Lab 12/16/19 15:00 Uncollected LACTATE, PLASMA [CHEM] Q3H Lab 12/16/19 18:00 Uncollected LACTATE, PLASMA [CHEM] Q3H Lab 12/16/19 21:00 Uncollected Result Diagrams: 12/16/19 18:13 - REASSESSMENT Reassessment #1 Status: other (Pt with persistent LE weakness and ataxia after fall yesterday, as well as symptoms concerning for stroke or TIA yesterday. Her speach is still abnormal, and she has some LE weakness and asymtric cerebellar testing. Will admit the patient for further work up. Discussed the patient with the hospital ist team who has accepted the patient. Discussed case with the orthopedic team who will look up the patient for further consideration.) Reassessment #2 Status: other (Disucssed case with the orthopedic team who will see the patient tomorrow and were agreeable with placing the patient in a sugar tong splint for collies fracture and arm sling for humerous fracture. Dr. Leal will see the patient on the floor.) - XRAY 1 XRAY Study: Shoulder Impression: See EMR Report (Patient: DAIN STANTON Date: 12/16/19MR#: [id number] : 1950DM Status: PRE ERAcct#: [id number] Age/Sex: 69/FRoom/Bed: Loc: ED Ordering Physician: Yoel Navarro MD Family Physician: Adam Lindo MD Reason for Procedure: fall Signed SHOULDER LEFT - 12/16/2019 INDICATION: fall TECHNIQUE: Two views COMPARISON: None FINDINGS: There is essentially nondisplaced fracture through the greater tuberosity of the humeral head. There is probably also nondisplaced fracture through the surgical neck. No dislocation. IMPRESSION: Nondisplaced fractures of the left humeral head. Electronically signed by Reji Thao 12/16/2019 6:08 PM 12/16/191807 Interpreting Physician: Reji Thao MD Dictated Date/Time: 12/16/191806 cc: Yoel Navarro MD; Adam Lindo MD) 2 XRAY Study: Chest Impression: See EMR Report (Patient: DAIN STANTON Date: 12/16/19#: [id number] : 1ADM Status: [facility]#: [id number] Age/Sex: 69/FRoom/Bed: Loc: ED Ordering Physician: Jesus Saab MD Family Physician: Adam Lindo MD Reason for Procedure: Fall Signed CHEST-1 VIEW - 12/16/2019 INDICATION: Fall COMPARISON: 01/19/2019 FINDINGS: The lungs are normally expanded and clear. Heart size and mediastinal contours are normal. No pneumothorax or pleural effusion. IMPRESSION: Negative exam. Electronically signed by Reji Thao 12/16/2019 8:42 PM 12/16/192041 Interpreting Physician: Reji Thao MD Dictated Date/Time: 12/16/192040 cc: Jesus Saab MD; Adam Lindo MD) - CT/MRI 1 CT Study: Head Impression: See EMR Report (Patient: DAIN STANTON Date: 12/16/19MR#: [id number] : 1950DM Status: PRE ERAcct#: [id number] Age/Sex: 69/FRoom/Bed: Loc: ED Ordering Physician: Yoel Navarro MD Family Physician: Adam Lindo MD Reason for Procedure: falls/stroke-like symptoms ___ Signed CT HEAD W/O CONTRAST - 12/16/2019 INDICATION: falls/stroke- like symptoms COMPARISON: 01/13/2019 FINDINGS: There is some stable patchy periventricular white matter chronic microvascular ischemia, mainly in the frontal lobes. The ventricles and sulci are normal in size and contour. No intracranial mass or hemorrhage. The skull is intact. The sinuses mastoids and middle ears are clear. IMPRESSION: No acute disease or change from prior. This exam was performed using automated exposure control, adjustment of mA or kV according to patient size, and/or use of iterative reconstruction technique Electronically signed by Reji Thao 12/16/2019 5:58 PM 12/16/198 Interpreting Physician: Reji Thao MD Dictated Date/Time: 12/16/191756 cc: Yoel Navarro MD; Adam Lindo MD) Departure - Departure Date of Disposition Decision: 12/16/19 Time of Disposition Decision: 20:07 DIAGNOSIS: Stroke-like symptoms Humerus fracture Qualifiers: Encounter type: initial encounter Humerus Location: surgical neck Fracture morphology: 2-part Fracture alignment: nondisplaced Laterality: left Colles' fracture Qualifiers: Encounter type: initial encounter Laterality: right Disposition: ADMITTED INPATIENT 09 Certified Medical Emergency: Emergent Condition: Fair - Critical Care Note This patient required my direct & personal management of CC.: No Attestation - Physician/ VICK Attestation Patient care was provided by Advanced Practice Provider:: No The physician spent face to face time with patient:: Yes Advanced Practice Provider documentation review:: Supervising physician onsite and consulted in the evaluation and care of this patient. The physician did have a face to face encounter with the patient.
[2019-12-16] MEDS ORDERED: ASPIRIN PO ONE (19:26)
[2019-12-16] MEDS ORDERED: NS 1,000 ML IV ONE ×2 (20:08→21:36)
[2019-12-16] MEDS ORDERED: MORPHINE IV ONE (20:10)
--- NOTE | 2019-12-16 20:44 | Diag Imaging Result Doc PS360 ---
CHEST-1 VIEW - 12/16/2019 INDICATION: Fall COMPARISON: 01/19/2019 FINDINGS: The lungs are normally expanded and clear. Heart size and mediastinal contours are normal. No pneumothorax or pleural effusion. IMPRESSION: Negative exam. Electronically signed by Reji Thao 12/16/2019 8:42 PM
[2019-12-16] MEDS ORDERED: CATAPRES PO PRN (21:52)
[2019-12-16 22:27] LABS: BASO# 0.08 X1000 (0.0-0.2); BASO% 0.5 % (0.0-0.8); EOS# 0.34 X1000 (0.0-0.7); HEMATOCRIT 43.1 % (37.0-47.0); HEMOGLOBIN 13.6 g/dL (12.0-16.0); IMM GRAN# 0.03 X1000 (0.0-0.04); IMM GRAN% 0.2 % (0.0-0.5); LYMPH# 2.48 X1000 (1.2-3.4); LYMPH% 14.6 % (20.5-51.1); MCH 28.8 PG (27-31); MCHC 31.6 g/dL (33-37); MCV 91.3 FL (81-99); MONO# 1.01 X1000 (0.11-0.59); MONO% 5.9 % (1.7-9.3); MPV 12.7 FL (7.4-10.4); NEUT# 13.07 X1000 (1.4-6.5); NEUT% 76.8 % (42.2-75.2); PLT 314 X1000 (130-400); RBC 4.72 XMIL (4.2-5.4); RDW 12.9 % (11.5-14.5); WBC 17.01 X1000 (4.8-10.8)
--- NOTE | 2019-12-16 22:28 | HISTORY AND PHYSICAL ---
CHIEF COMPLAINT: Left arm pain and fall. HPI: The patient is a 69-year-old white female followed by Dr. Malka Lindo. Apparently she was in her home today when she says she was trying to get to her walker to ambulate up a couple of steps going up out of her split level din. She apparently fell on her left side. She relates over the past 2 to 3 days seems to be falling to the left, having some possible weakness in her left arm and left leg. She suffered pain in her left upper arm after the fall and was unable to call help but her sister tried to call her and summoned local neighbor to go check on her after she did not answer the phone. This may have taken a 2 hour span for she was checked on by neighbor found to have left arm and leg weakness and injury to her left upper arm. She also relates about 3 weeks ago she fell on her right wrist while she was walking her dog. She says the dog pulled her significantly while it was on a leash and she stubbed her toe and fell to her right wrist at that time and was seen at the walk-in clinic at [facility]. She was diagnosed with nondisplaced fracture of the wrist/Colles fracture and was in a brace until recently. MEDICATIONS: Prior to admission are Zocor 40 mg p.o. daily, Paxil 20 mg p.o. daily, omeprazole 40 mg p.o. daily, vitamin D 50,000 international units p.o. each week, Klor-Con 20 mEq half to 1 p.o. daily, Icar C 1 p.o. daily, naltrexone 50 mg p.o. daily, Zyrtec 10 mg p.o. daily, sulindac 150 mg p.o. daily, Zofran 4 mg p.o. t.i.d. p.r.n. nausea, Keppra 1000 mg p.o. b.i.d. ALLERGIES: Penicillin and sulfa. PAST MEDICAL HISTORY: 1. History of alcohol withdrawal seizures. 2. History of alcoholism, patient says she has been sober for a year now. 3. Hiatal hernia. 4. Hyperlipidemia. 5. Osteoarthritis. 6. Hypokalemia. 7. Depression. 8. History of falls, prior left Colles fracture. PAST SURGICAL HISTORY: Right inguinal hernia repair. FAMILY HISTORY: Notable for prostate cancer, cancer in her father, mother, congestive heart failure. SOCIAL HISTORY: The patient lives in [place], she is , she lives alone. She says she has been off alcohol for a year prior smoker as well, been on chronic pain medicine long-term. Last DEXA scan in notable 2017. Colonoscopy and EGD per Dr. Prescott 2014 . REVIEW OF SYSTEMS: Negative except as above. PHYSICAL EXAMINATION: VITAL SIGNS: Afebrile, pulse 101, respirations 21, blood pressure 190/144, weight 140, height 5 feet 2 inches tall. GENERAL: Mildly obese white female no acute distress. SKIN: Warm and dry. Bruising left upper arm noted. ORTEGA, EOMI. Sclerae clear. OP no redness, tongue with deviation to the right very slightly. NECK: No LA, TMG, JVD, cannot rule out left carotid bruit. CV: RRR without murmur. LUNGS: CTA. ABDOMEN: Soft, protuberant NT ND, no mass, no HSM . BREASTS/PELVIC/RECTAL: Deferred. EXTREMITIES: No calf tenderness, cords, edema. DTRs are equal at 2 to 3+ over 4 knee jerks. Normal Babinski testing. Mild decreased strength in the left arm and leg compared to the right. NEURO: Cranial nerves are intact except there is left facial droop mild. X-RAYS: Show chest negative exam. Right wrist impacted Colles fracture. Left shoulder nondisplaced fractures of the greater tuberosity of the humeral head, possibly nondisplaced fracture through the surgical neck. CT of the head reveals no acute disease process, patchy periventricular white matter/chronic microvascular ischemic changes mainly in the frontal lobes. Lactate level is normal. ASSESSMENT: 1. Frequent falls. 2. Left facial and left arm, left leg weakness thought subacute cerebrovascular accident ischemic variety. 3. Remote history of alcohol withdrawal seizures stable on Keppra. 4. Alcoholism, patient denying alcohol use in the past year. 5. Hypercholesterolemia. 6. Depression. 7. Prior history of smoking. 8. Osteoarthritis on chronic pain medication . 9. Impacted right Colles fractures subacute about 3 weeks old. 10. Acute left humeral fractures 11. History of hypokalemia. 12. Hiatal hernia . 13. Elevated blood pressure rule out hypertension . 14. Vitamin D deficiency. 15. Hyperlipidemia . PLAN: Will admit the patient to telemetry bed. Give her aspirin 325 mg daily. Check carotid Doppler studies. Check EKG. Check labs include CMP, CBC, Keppra level. Will ask orthopedist to see patient regarding her 2 fractures. Keep her at strict bed rest. Ask Physical Therapy to see patient in consultation. Check carotid Dopplers. Give clonidine as needed for markedly elevated BPs. Continue Zocor. Repeat FLP in the morning, give her low IV hydration. cc: MD Jae Hale MD MTDD
[2019-12-16 22:32] LABS: AGAP 13; ALB/GLOB RATIO 1.4; ALBUMIN 4.5 g/dL (3.5-5.0); ALKALINE PHOSPHATASE 202 U/L (32-104); BUN 16 mg/dL (8-22); CALCIUM 9.5 mg/dL (8.8-10.2); CHLORIDE 104 mmol/L (98-107); COSMO 279; CREATININE 0.8 mg/dL (0.5-0.9); ESTIMATED GFR > 60; GLUCOSE 104 mg/dL (70-104); GOT 21 U/L (10-30); GPT 10 U/L (10-36); POTASSIUM 3.9 mmol/L (3.5-5.1); SODIUM 139 mmol/L (136-145); TCO2 22 mmol/L (25-35); TOTAL BILIRUBIN 0.41 mg/dL (0.20-1.00); TOTAL PROTEIN 7.7 g/dL (6.3-8.3)
[2019-12-16] MEDS ORDERED: TYLENOL PO PRN (23:56)
[2019-12-17 07:16] LABS: CHOLESTEROL 204 mg/dL (0-200); HDL 33 mg/dL (45-65); LDL 136 mg/dL; TRIGLYCERIDES 174 mg/dL (35-135); VLDL 35 mg/dL
--- NOTE | 2019-12-17 07:36 | EKG Report ---
Test Performed on : 12/17/2019 07:17:23 AM Test Reason : CP Blood Pressure : / mmHG Vent. Rate : 090 BPM Atrial Rate : 090 BPM P-R Int : 156 ms QRS Dur : 078 ms QT Int : 392 ms P-R-T Axes : -16 032 029 degrees QTc Int : 479 ms Normal sinus rhythm. Inferior infarct , age undetermined Abnormal ECG When compared with ECG of 29-NOV-2018 07:11, Inferior infarct is now present Confirmed by Neno Helms MD ([id number]) on 12/17/2019 9:07:35 PM
--- NOTE | 2019-12-17 07:43 | ORTHOPAEDICS CONSULTATION ---
DATE: 12/17/2019 HISTORY OF PRESENT ILLNESS: Ms. Adams is a 69-year-old female who presented to the emergency department yesterday with symptoms of stroke. She fell and landed on her left upper extremity. She says she has been falling a lot and she has been having some weakness on her left side. She was diagnosed with a humerus fracture and wrist fracture in the ER. She was also admitted for subcu cerebrovascular accident. PAST MEDICAL HISTORY: Alcohol withdrawal seizures, alcoholism, depression, hiatal hernia. PAST SURGICAL HISTORY: Right inguinal hernia repair. FAMILY HISTORY: Positive for prostate cancer in her father, and congestive heart failure in her mother. SOCIAL HISTORY: She admits to alcohol abuse in the past. She says she has been off alcohol for about a year and off all smoking as well. REVIEW OF SYSTEMS: Positive for left shoulder and wrist pain. All other systems are essentially negative. PHYSICAL EXAMINATION: General: Ms. Adams is lying in bed, no acute distress. Head and neck: Normocephalic, atraumatic. Respirations: She has nonlabored breathing. Cardiovascular: Regular pulse. Abdomen: Nondistended. Extremities: Left upper extremity exam: She has tenderness to palpation of the shoulder. There is not a lot of ecchymoses or swelling present. She has tenderness to palpation down at the wrist as well. There is a sugar-tong splint that is intact. All hand intrinsics are intact. She has good sensation to light touch to all of the fingers. No skin ulcerations or abrasions seen. RADIOGRAPHS: Several views of the left shoulder show what looks like a three-part proximal humerus fracture that is largely nondisplaced. Two view left wrist shows a distal radius fracture that is nondisplaced. ASSESSMENT: 1. Left proximal humerus fracture. 2. Left distal radius fracture. PLAN: I discussed with Ms. Adams about her fractures. Fortunately both of them line up really well, so I would not recommend any surgical intervention at this point. We will keep her immobilized in a sling and in her sugar-tong splint. When she is discharged from the hospital, we will follow her up in the orthopedic office in about a week and we will get x-rays at that time. cc: MD Jae Bartlett MD
[2019-12-17] MEDS: PRILOSEC PO SCH (08:12)
[2019-12-17] MEDS ORDERED: REVIA PO SCH (09:00)
[2019-12-17] MEDS: KEPPRA PO SCH ×4 (09:33→22:21)
[2019-12-17] MEDS: ZOCOR PO SCH ×2 (09:33→11:15)
[2019-12-17] MEDS: PAXIL PO SCH ×2 (09:33→11:14)
[2019-12-17] MEDS: ICAR-C PLUS PO SCH ×2 (09:33→11:14)
[2019-12-17] MEDS: KLOR-CON PO SCH ×2 (09:33→11:14)
[2019-12-17 11:44] LABS: URINE SOURCE CLEAN CATCH
[2019-12-17 11:51] LABS: BILIRUBIN URINE NEGATIVE (NEGATIVE); BLOOD URINE NEGATIVE (NEGATIVE); COLOR YELLOW; GLUCOSE URINE NEGATIVE (NEGATIVE); KETONE URINE NEGATIVE (NEGATIVE); LEUKOCYTES URINE NEGATIVE (NEGATIVE); NITRITE URINE NEGATIVE (NEGATIVE); PROTEIN URINE 30 mg/dL (NEGATIVE); SP GRAVITY URINE 1.026; TURBIDITY URINE CLEAR (CLEAR); UROBILINOGEN URINE NORMAL (NORMAL)
[2019-12-17 11:54] LABS: UR EPITHELIAL CELLS <10 /HPF (<10); URINE BACTERIA NEGATIVE /HPF; URINE RBC <10 /HPF (<10); URINE WBC <10 /HPF (<10)
[2019-12-17] MEDS: ASPIRIN EC PO SCH ×2 (19:44→22:20)
[2019-12-17] MEDS ORDERED: NEXIUM IV SCH (22:00)
[2019-12-17] MEDS ORDERED: SODIUM CHLORIDE 0.9% INJ SCH (22:00)
[2019-12-17] MEDS: PROTONIX IV SCH (22:33)
[2019-12-17] MEDS: SODIUM CHLORIDE 0.9% INJ SCH (22:33)
[2019-12-17] MEDS: LOVENOX SUBQ SCH (22:33)
--- NOTE | 2019-12-17 22:38 | PROGRESS NOTE ---
DATE: 12/17/2019 SUBJECTIVE: A 69-year-old white female admitted to the hospital with a fall, weakness on the left side and injury to the left shoulder and left wrist. I did review the dictation by Dr. Leal. This morning she has a slight weakness on the left side of the face. Speech is normal. The left arm had a sling. Chest was clear. Heart sounds were regular. Belly was soft, nontender. No obvious weakness noted on the left leg. H and P was reviewed. PAST MEDICAL HISTORY: Reviewed. PAST SURGICAL HISTORY: Reviewed. MEDICATIONS: Reviewed. ALLERGIES: Penicillin and sulfa. REVIEW OF SYSTEMS: Slight weakness on the left side of the face. No other weakness noted. OBJECTIVE: On exam, temperature is 98 degrees, pulse 87, blood pressure is stable, 97% on room air. HEENT exam: Mild facial weakness on the left side. Left arm had a sling placed. Chest is clear. Heart sounds are regular. Belly is soft, nontender. No obvious deficits noted. LABORATORY DATA: White cell count 7, hematocrit 43, platelets 314,000. SMA 7 is normal. LFTs were normal. Triglycerides 174, cholesterol 204, LDL 135. Urinalysis is clear. DIAGNOSTIC DATA: I did review the x-rays. Chest x-ray was stable, noted left shoulder fracture. Wrist: Impacted Colles fracture. Shoulder/humerus: Nondisplaced fracture of the left humeral head. CT head: No acute disease. EKG: Normal sinus, nothing acute. ASSESSMENT AND PLAN: 1. Possible stroke, weakness on the left side. We will get MRI of the brain and carotid Doppler. 2. Left shoulder, left wrist fractures. Appreciated Orthopedics consult. No surgical intervention. 3. Speech therapy evaluations for the high risk for aspiration. She has history of withdrawal seizures, currently on Keppra. Reconcile home medications. Out of the bed with physical therapy. I spoke to the patient at bedside. Also, consider deep venous thrombosis and gastrointestinal prophylaxis with Lovenox and Nexium. Follow up on the pending labs. Level of documentation 35 minutes. cc: Jae Lindo MD
[2019-12-18] MEDS: PRILOSEC PO SCH ×2 (05:18→07:25)
[2019-12-18] MEDS: ZOCOR PO SCH (08:41)
[2019-12-18] MEDS: KEPPRA PO SCH ×2 (08:41→22:47)
[2019-12-18] MEDS: ICAR-C PLUS PO SCH (08:41)
[2019-12-18] MEDS: KLOR-CON PO SCH (08:41)
[2019-12-18] MEDS: PAXIL PO SCH (08:42)
[2019-12-18] MEDS ORDERED: VITAMIN D PO SCH (09:00)
--- NOTE | 2019-12-18 10:13 | Diag Imaging Result Doc PS360 ---
EXAM: MRI BRAIN W/WO CONTRAST 12/18/2019 HISTORY: possible CVA TECHNIQUE: T1 axial and sagittal, post gadolinium-enhanced axial with coronal reformation, axial T2, FLAIR, DWI and coronal gradient echo. COMMENT: There are patchy areas of increased T2-weighted signal intensity within the basal ganglia bilaterally as well as in the external capsule regions and periventricular white matter. There are lacunar areas of increased T2-weighted signal intensity in the thalami bilaterally. No evidence of bleed or abnormal extra-axial fluid collection is present and there is no evidence of mass effect. There are small foci of restricted diffusion anterior to the caudate nucleus and in the posterior limb of the internal capsule region on the right. There is no evidence of abnormal gadolinium enhancement. IMPRESSION: Chronic microvascular changes with acute lacunar infarctions on the right as described. The findings were discussed with Adam Lindo MD at 12/18/2019 10:10 AM. Electronically signed by Jeffrey Ocampo 12/18/2019 10:10 AM
--- NOTE | 2019-12-18 14:22 | Carotid Study ---
DATE: 12/17/2019 REQUESTING PHYSICIAN: Dr. Leal COSMETICS MACHINE OPERATOR: Jacobo INDICATION: Left facial droop and weakness. EQUIPMENT: [employer] Vivid E9 ultrasound system a 9 L-D transducer. Comparison from 11/29/2018. FINDINGS: Complete diagram of ultrasound images can be seen scanned in the patient's medical record. The peak systolic velocity noted on the right side is in the mid internal carotid artery and is noted to be 73. The peak systolic velocity noted on the left side is in the distal internal carotid artery and is noted to be 66. The calculated internal common ratio on the right is 1.07, left 0.56. Calculated stenosis on the right 0 to 39%, left 0 to 39%. Both vertebral arteries were antegrade flow. There appears to be some atherosclerosis, but bilateral carotid arteries are tortuous in their course, which may limit the interpretive ability of this study, but there appears to be no hemodynamically significant flow-limiting stenosis noted by strict velocity criteria. When compared to previous study, this is improved slightly on the left side. INTERPRETATION: Somewhat technically difficult study secondary to tortuous nature of the vessels. No hemodynamically significant flow-limiting stenosis noted to bilateral carotid arteries. This is a slight improvement when compared to previous studies. cc: MD Blake Matias MD Jagan Reddy, MD
--- NOTE | 2019-12-18 21:58 | PROGRESS NOTE ---
DATE: 12/18/2019 SUBJECTIVE: The patient is getting bathing today and continues to have swelling on the left side. Some facial asymmetry noted. No definitive weakness observed. OBJECTIVE: Vital signs: On examination temp is 98 degrees, pulse 78. Vitals are stable. HEENT: Mild left-sided facial weakness noted. Chest: Is clear. Heart: Sounds are regular. Abdomen: Belly is soft, nontender. No obvious weakness. INVESTIGATIONS: 1. MRI brain was done. It showed chronic microvascular ischemic changes, acute lacunar infarctions on the right side. 2. Carotid Dopplers negative. 3. EKG normal sinus. ASSESSMENT AND PLAN: 1. Cerebrovascular accident on the right side, lacunar stroke with weakness on the left side. Not significant. Continue aspirin and LDL less than 70. 2. Left shoulder fracture and left wrist fracture. Continue nonoperative management. 3. Director Television consult for rehab placement. 4. History of seizures on Keppra levels are normal. 5. Continue deep vein thrombosis and gastrointestinal prophylaxis as per order sheet. 6. Out of the bed with physical therapy and she passed the swallowing study. Continue diet without any aspiration. LDL is 136, and probably we will start on high intensity statin therapy. LEVEL OF DOCUMENTATION: 25 minutes. cc: Jae Lindo MD
[2019-12-18] MEDS: ASPIRIN EC PO SCH (22:47)
[2019-12-18] MEDS: LOVENOX SUBQ SCH (22:47)
[2019-12-18] MEDS: SODIUM CHLORIDE 0.9% INJ SCH (22:48)
[2019-12-18] MEDS: PROTONIX IV SCH (22:48)
[2019-12-19] MEDS: PRILOSEC PO SCH (08:21)
[2019-12-19] MEDS: ASPIRIN EC PO SCH ×2 (08:22→23:17)
[2019-12-19] MEDS: KEPPRA PO SCH ×2 (09:23→23:15)
[2019-12-19] MEDS: PAXIL PO SCH (09:23)
[2019-12-19] MEDS: ZOCOR PO SCH (09:23)
[2019-12-19] MEDS: ICAR-C PLUS PO SCH (09:23)
[2019-12-19] MEDS: KLOR-CON PO SCH (09:24)
--- NOTE | 2019-12-19 20:45 | PROGRESS NOTE ---
DATE: 12/19/2019 SUBJECTIVE: The patient has MRI done. Results discussed with the patient. She has lacunar stroke. Carotid Dopplers were negative and subtle weakness on the left side. REVIEW OF SYSTEMS: None reported. OBJECTIVE: Vital signs: Temperature is 98 degrees. Vitals are stable. General: Mild facial asymmetry noted on the left side. Left arm is in a sling. Chest: Clear. Heart: Sounds are regular. Abdomen: Belly is soft, nontender. Good bowel sounds. Neurologic: No obvious definitive deficits noted. ASSESSMENT AND PLAN: 1. Right sided stroke due to lacunar stroke. Optimize the treatment. LDL is high. Increasing the simvastatin to 80 mg daily. Continue aspirin. Out of the bed with physical therapy. 2. Deep venous thrombosis and gastrointestinal prophylaxis as per order sheet. 3. Left wrist fracture, on sling. Nonoperative management. Physical Therapy and [employer] for short-term rehabilitation. 4. Check the CBC and SMA 7 in the morning. LEVEL OF DOCUMENTATION: 25 minutes. cc: Jae Lindo MD
[2019-12-19] MEDS: PROTONIX IV SCH (23:17)
[2019-12-19] MEDS: LOVENOX SUBQ SCH (23:17)
[2019-12-19] MEDS: SODIUM CHLORIDE 0.9% INJ SCH (23:17)
[2019-12-20] MEDS: PRILOSEC PO SCH (06:39)
[2019-12-20 07:44] LABS: BASO# 0.09 X1000 (0.0-0.2); BASO% 0.8 % (0.0-0.8); EOS# 0.47 X1000 (0.0-0.7); HEMATOCRIT 36.8 % (37.0-47.0); HEMOGLOBIN 11.6 g/dL (12.0-16.0); IMM GRAN# 0.08 X1000 (0.0-0.04); IMM GRAN% 0.7 % (0.0-0.5); LYMPH# 2.33 X1000 (1.2-3.4); LYMPH% 19.6 % (20.5-51.1); MCH 29.2 PG (27-31); MCHC 31.5 g/dL (33-37); MCV 92.7 FL (81-99); MONO# 0.78 X1000 (0.11-0.59); MONO% 6.6 % (1.7-9.3); MPV 11.6 FL (7.4-10.4); NEUT# 8.13 X1000 (1.4-6.5); NEUT% 68.3 % (42.2-75.2); PLT 286 X1000 (130-400); RBC 3.97 XMIL (4.2-5.4); RDW 12.7 % (11.5-14.5); WBC 11.88 X1000 (4.8-10.8)
[2019-12-20 08:04] LABS: AGAP 13; BUN 19 mg/dL (8-22); CALCIUM 9.1 mg/dL (8.8-10.2); CHLORIDE 103 mmol/L (98-107); COSMO 285; CREATININE 0.8 mg/dL (0.5-0.9); ESTIMATED GFR > 60; GLUCOSE 126 mg/dL (70-104); POTASSIUM 3.5 mmol/L (3.5-5.1); SODIUM 141 mmol/L (136-145); TCO2 25 mmol/L (25-35)
[2019-12-20] MEDS: KLOR-CON PO SCH (09:19)
[2019-12-20] MEDS: KEPPRA PO SCH ×2 (09:19→21:40)
[2019-12-20] MEDS: ICAR-C PLUS PO SCH (09:19)
[2019-12-20] MEDS: ZOCOR PO SCH (09:19)
[2019-12-20] MEDS: PAXIL PO SCH (09:20)
--- NOTE | 2019-12-20 18:35 | PROGRESS NOTE ---
DATE: 12/20/2019 SUBJECTIVE: The patient has finally agreed to go for rehab, and the process was started. The patient needs assistance. REVIEW OF SYSTEMS: None reported. OBJECTIVE: Vital Signs: Temperature 97.9 degrees, pulse 89, and blood pressure is stable. HEENT: Mild facial weakness noted. Chest: Clear. Heart: Sounds are regular. Abdomen: Belly is soft, nontender. Extremities: Left arm is under sling. LABORATORY: White cell count 11, hematocrit 36, and platelets 286,000. SMA 7 is normal. ASSESSMENT AND PLAN: 1. Lacunar stroke on the right side due to small vessel disease. Continue on aspirin. 2. Carotid studies negative. 3. Seizures due to stroke and withdrawals on Keppra 1000 p.o. b.i.d. 4. Left shoulder fracture and wrist fracture under the sling. 5. Out of bed with Physical Therapy. 6. Deep venous thrombosis and gastrointestinal prophylaxis as per order sheet. 7. Continue vitamin D replacement since patient is on Keppra. 8. Hyperlipidemia. Increasing Zocor 80 mg daily. 9. Depression on Paxil 20 daily. 10. Increase ambulation over the weekend. 11. We will discharge to rehab on Monday. LEVEL OF DOCUMENTATION: 25 minutes. cc: Jae Lindo MD
[2019-12-20] MEDS: PROTONIX IV SCH (21:40)
[2019-12-20] MEDS: SODIUM CHLORIDE 0.9% INJ SCH (21:40)
[2019-12-20] MEDS: LOVENOX SUBQ SCH (21:40)
[2019-12-20] MEDS: ASPIRIN EC PO SCH (21:40)
[2019-12-20] MEDS: MORPHINE IV PRN (22:18)
[2019-12-20] MEDS: ZOFRAN PO PRN (22:18)
[2019-12-21] MEDS: PRILOSEC PO SCH (06:22)
[2019-12-21] MEDS: ZOCOR PO SCH (12:07)
[2019-12-21] MEDS: PAXIL PO SCH (12:07)
[2019-12-21] MEDS: KLOR-CON PO SCH (12:07)
[2019-12-21] MEDS: KEPPRA PO SCH ×2 (12:07→21:38)
[2019-12-21] MEDS: ICAR-C PLUS PO SCH (12:07)
--- NOTE | 2019-12-21 12:22 | PROGRESS NOTE ---
DATE: 12/21/2019 Vital signs stable with temperature 98.3 degrees, heart rate 91, respirations 18, blood pressure 135/68, O2 saturation on room air 98%. The patient has no specific complaints this morning. She is eating fairly well and ambulating with assistance. Rehab is planned for early next week. Laboratory yesterday was unremarkable. BUN was 19 and creatinine 0.8. There is history of seizures and she is on Keppra. MRI on 12/18/2019 of her head revealed an acute lacunar infarct on the right. She had a left shoulder fracture and wrist fracture and is currently treated with a sling. Physical therapy has been assisting to ambulate. cc: MD Jae Logan MD
[2019-12-21] MEDS: SODIUM CHLORIDE 0.9% INJ SCH (21:38)
[2019-12-21] MEDS: ZOFRAN PO PRN (21:38)
[2019-12-21] MEDS: ASPIRIN EC PO SCH (21:38)
[2019-12-21] MEDS: PROTONIX IV SCH (21:38)
[2019-12-21] MEDS: LOVENOX SUBQ SCH (21:38)
[2019-12-21] MEDS: MORPHINE IV PRN (21:38)
[2019-12-22] MEDS: KEPPRA PO SCH ×2 (10:07→20:15)
[2019-12-22] MEDS: KLOR-CON PO SCH (10:07)
[2019-12-22] MEDS: ICAR-C PLUS PO SCH (10:07)
[2019-12-22] MEDS: PAXIL PO SCH (10:08)
[2019-12-22] MEDS: ZOCOR PO SCH (10:08)
--- NOTE | 2019-12-22 10:31 | PROGRESS NOTE ---
DATE: 12/21/2019 OBJECTIVE: Vital signs stable with temperature 98.3 degrees, heart rate 94, respirations 18, blood pressure 147/80, O2 saturation on room air 99%. The patient is feeling well. Physical therapy has assisted ambulation, but she needs a considerable amount of help walking especially since she broke her left arm. Pain medicine is helping for her arm pain. Chest is clear to auscultation. PLAN: Rehabilitation to be arranged 1st to of the week. cc: MD Jae Logan MD
[2019-12-22] MEDS: PRILOSEC PO SCH (12:07)
[2019-12-22] MEDS: MORPHINE IV PRN (16:36)
[2019-12-22] MEDS: ZOFRAN PO PRN (16:37)
[2019-12-22] MEDS: SODIUM CHLORIDE 0.9% INJ SCH (20:15)
[2019-12-22] MEDS: ASPIRIN EC PO SCH (20:15)
[2019-12-22] MEDS: LOVENOX SUBQ SCH (20:15)
[2019-12-22] MEDS: PROTONIX IV SCH (20:16)
[2019-12-23] MEDS: PAXIL PO SCH (08:46)
[2019-12-23] MEDS: KEPPRA PO SCH (08:46)
[2019-12-23] MEDS: ICAR-C PLUS PO SCH (08:46)
[2019-12-23] MEDS: KLOR-CON PO SCH (08:46)
[2019-12-23] MEDS: ZOCOR PO SCH (08:46)
--- NOTE | 2019-12-23 09:35 | DISCHARGE SUMMARY ---
ADMISSION DATE: 12/16/2019 DISCHARGE DATE: 12/23/2019 DISCHARGING DIAGNOSIS: Right-sided cerebrovascular accident due to lacunar infarct with subtle left-sided weakness. SECONDARY DIAGNOSES: 1. Left humeral head fracture. 2. Left wrist fracture. 3. Seizures due to withdrawals from alcohol. 4. Chronic pain. 5. Depression. 6. Hemorrhoids. 7. Hiatal hernia. 8. Hyperlipidemia. CONSULTS: Dr. Armenta. BRIEF HISTORY: Please see the H and P that was done by Dr. Leal. In brief, she is a 69-year- old, white female, who had weakness on the left side and started falling. She sustained injury to the left shoulder and left wrist again. HOSPITAL COURSE: 1. Initially admitted for rule out CVA. MRI of the brain showed lacunar stroke on the right side, with subtle weakness, mostly facial asymmetry. Carotid Dopplers were negative. She was advised to continue medical management with aspirin, keep LDL less than 70. I did increase the simvastatin to 80 mg daily. The patient remains in sinus. 2. She also had left shoulder fracture and left wrist fracture. Dr. Armenta was consulted. He wants to put her in a sling for 6 to 8 weeks with nonoperative management. 3. She has withdrawal seizures in the past. Continue on Keppra. She is high risk for osteoporosis, and continue on calcium and vitamin D. 4. The patient has passed the swallowing study, able to eat. Continue on Prilosec for hiatal hernia. She also needs aggressive physical therapy. As a result, transfer to the [facility] under the care of Dr. Dean. RADIOLOGY PROCEDURES: 1. MRI of the brain showed acute lacunar strokes, mostly on the right side with basal ganglia. 2. Carotid Dopplers were negative. 3. Chest x-ray: Negative exam. 4. Wrist x-ray showed impacted Colles fracture. 5. Shoulder x-ray: Nondisplaced left humeral head fracture. 6. CT head: No acute changes. DISCHARGE LABORATORY DATA: CBC: White cell count 11, hematocrit 36, platelet count 286,000. Sodium 141, potassium 3.5, chloride 103, BUN 19, creatinine 0.8, glucose 126. Triglycerides 174, cholesterol 204, LDL 136. DISCHARGE MEDICATIONS: Pneumococcal vaccine 13 was given on 11/24/2018, simvastatin 80 mg daily, aspirin 325 daily, Paxil 20 daily, Prilosec 40 daily, vitamin D 50,000 once a week, potassium 20 mEq daily, Icar C Plus 1 tablet daily, cetirizine 10 mg daily, Keppra 1000 p.o. b.i.d., Lovenox 40 mg subcutaneously every 12 hours for 3 weeks, Ultracet 1 tablet every 6 hours p.r.n. pain. FOLLOWUP: Follow up in my office in 2 weeks, as well as with Dr. Armenta in 1 month. cc: Jae Lindo MD MTDD
[2019-12-23 11:03] VITALS: BP 139/79
== END 2019-12-23 14:34 | DRG 65 ==
LOC: ED 14:09 → 4N 21:41
PROVIDERS: ADMIT Internal Medicine; ATTEND Internal Medicine